=== PATIENT | male | born 1945 | race African-American/Black ===

== ENCOUNTER 2020-04-14 12:28 | Inpatient (IN) | payer MEDICARE ==
[2020-04-14 13:12] LABS: #Basophils 0.1 thou/uL (0.0-0.2); #Eosinphils 0.1 thou/uL (0.0-0.7); #Lymphocytes 1.7 thou/uL (1.20-3.40); #Monocytes 0.8 thou/uL (0.11-0.59); #Neutrophils 4.7 thou/uL (1.40-6.50); %Basophils 1.2 % (0.0-1.0); %Eosinophils 1.5 % (0.0-10.0); %Lymphocytes 22.9 % (21.0-51.0); %Monocytes 10.8 % (0.0-10.0); %Neutrophils 63.7 % (42.0-75.0); Hemoglobin 11.8 g/dL (14.0-18.0); Mean Corpuscular HGB CONC 34.1 g/dL (32.0-36.0); Mean Corpuscular Volume 99.8 fL (78.0-98.0); Platelet Count 236 thou/uL (130-400); RBC Distribution Width 13.8 % (11.5-14.5); Red Blood Cell (RBC) Count 3.46 mill/uL (4.70-6.10); White Blood Cell (WBC) Count 7.4 thou/uL (4.8-10.8)
[2020-04-14 13:25] LABS: ALT (SGPT) 35 U/L (8-55); AST (SGOT) 29 U/L (5-34); Albumin 4.1 g/dL (3.4-4.8); Alkaline Phosphatase 60 U/L (40-110); Anion Gap 27 mmol/L (10-20); BUN (Urea Nitrogen) 41 mg/dL (8.4-25.7); Bilirubin, Total 0.6 mg/dL (0.2-1.2); Calc. Creatinine Clearance 0 mL/min (70-130); Calcium 9.7 mg/dL (7.8-10.44); Carbon Dioxide 21 mmol/L (23-31); Chloride 96 mmol/L (98-107); Estimated GFR-MDRD 6; Globulin 2.9 g/dL (2.4-3.5); Glucose 73 mg/dL (83-110); Lipase 5 U/L (8-78); Potassium 3.7 mmol/L (3.5-5.1); Sodium 140 mmol/L (136-145)
[2020-04-14] MEDS ORDERED: Morphine 4 MG/ML VIAL ONE (14:18)
[2020-04-14] MEDS ORDERED: cloNIDine 0.1 MG TAB ONE (14:46)
[2020-04-14 14:53] LABS: Bacteria/HPF 3+ HPF (None Seen); Bilirubin Negative (Negative); Blood, Urine 3+ (Negative); Calcium Oxalate Crystals 4+ HPF (None Seen); Clarity Extra Turbid (Clear); Glucose, Urine (Dipstick) Normal (Negative); Ketone, Urine Trace mg/dL (Negative); Leukocyte 500 Leu/uL (Negative); Nitrite Negative (Negative); Protein, Urine (Dipstick) 300 mg/dL (Neg-Trace); RBC/HPF Greater than 50 HPF (0-3); Specific Gravity, Urine 1.015 (1.002-1.036); Squamous Epithelial 0-3 HPF (0-3); Urobilinogen Normal mg/dL (Less than 2); WBC/HPF Greater than 50 HPF (0-3); pH, Urine 7.5 (5.0-9.0)
--- NOTE | 2020-04-14 15:03 | CT ---
CT ABDOMEN AND PELVIS WITHOUT CONTRAST: 04/14/20 PROVIDED CLINICAL HISTORY: Abdominal pain. FINDINGS: Comparison is made with the examination dated 05/24/15. The visualized lung bases are free of significant opacity. Vascular calcifications including coronary calcium is demonstrated. There is an exophytic slightly hyperdense mass arising from the inferior aspect of the right kidney m easuring at least 2 cm, which could reflect a solid mass or hyperdense cyst, incompletely characteriz ed in the absence of IV contrast material. There is mild left hydronephrosis and left hydroureter with stranding about the mid to distal aspects of the left ureter. There is no ureteral or bladder calculus evident. The right renal collecting sys tem and ureter appear decompressed. There is a subcentimeter right renal artery aneurysm redemonstra maria a. Calcifications are seen involving each kidney which may be vascular or may reflect small renal c alculi. The kidneys appears diminutive. The solid abdominal organs are suboptimally evaluated in the absence of IV contrast material but demo nstrate an otherwise unremarkable unenhanced CT appearance. There is no bowel dilatation, additional inflammatory fat stranding, free fluid, or free air apparent . The appendix appears normal. The gallbladder is surgically absence. Atherosclerotic vascular calcifications are demonstrated. There is a small fat containing paraumbilic al hernia. The osseous structures demonstrate no concerning lytic or blastic lesions. IMPRESSION: 1. Mild left hydronephrosis and left hydroureter, without evidence for ureteral or bladder calcu alexandra. This may reflect a recently passed stone. 2. 2 cm right renal mass, hyperdense cyst versus solid mass. Follow-up nonemergent renal ultraso und is recommended. POS: COREY
[2020-04-14] MEDS ORDERED: HYDROmorphone 0.5 MG/0.5 ML SYRINGE ONE (15:10)
[2020-04-14] MEDS ORDERED: Acetaminophen 325 MG TAB ONE (15:17)
[2020-04-14] MEDS ORDERED: Acetaminophen 325 MG TAB PO PRN (15:33)
[2020-04-14] MEDS ORDERED: HYDROcodone/Acetaminophen 10/325 mg Tablet PO PRN (15:33)
[2020-04-14] MEDS ORDERED: Baclofen 10 MG TAB PO PRN (15:39)
--- NOTE | 2020-04-14 15:59 | PDOC.HHP ---
Hospitalist HPI - History of Present Illness Right LLQ tenderness History of Present Illness: 74 YO M with a PMH of ESRD on HD, HTN, DM who was presented to the ER with worsening RLQ pain. Pt stated he was admitted a week ago, at [facility] for 3 days for abd pain. He says he was not sure of his diagnosis and was dc home. Review of [facility] med[facility] records and CT scan however show pt was treated for Pyel onephritis, R kidney stone and possible Right kidney mass. Pt stated he still did not feel better upon getting home and his abd pain got worse. He has daily BM, including this morning, denies fever, chills, N, V . He gets HD on TTS and was at HD today when he was sent to the ER due to severe abd pain. CT scan results are still pending. Pt has been admitted for further evaluation. Hospitalist ROS - Review of Systems Constitutional: denies: fever, chills, sweats, weakness, malaise, other Eyes: denies: pain, vision change, conjunctivae inflammation, eyelid inflammation, redness, other ENT: denies: ear pain, ear discharge, nose pain, nose discharge, nose congestion, mouth pain, mouth swelling, throat pain, throat swelling, other Respiratory: denies: cough, dry, shortness of breath, hemoptysis, SOB with excertion, pleuritic pain, sputum, wheezing, other Gastrointestinal: reports: abdominal pain Genitourinary: denies: dysuria, frequency, incontinence, hematuria, retention, other Musculoskeletal: denies: neck pain, shoulder pain, arm pain, back pain, hand pain, leg pain, foot pain, other Skin: denies: rash, lesions, christine, bruising, other Neurological: denies: weakness, numbness, incoordination, change in speech, confusion, seizures, other Hospitalist History - Past Medical History Cardiac: reports: CHF, HTN, Hyperlipidemia Renal/: reports: Chronic renal failure Endocrine: reports: Diabetes - Past Surgical History Past Surgical History: reports: Cholecystectomy, Total Knee Replacement - Family History Family History: reports: diabetes mellitus - Social History Smoking Status: Never smoker Alcohol: reports: None Drugs: reports: none Domestic Violence: Negative Activity level: independent ambulation - Exam General Appearance: NAD, awake alert General - other findings: In acute pain Eye: PERRL, anicteric sclera ENT: normocephalic atraumatic, no oropharyngeal lesions Neck: supple, symmetric, no JVD, no thyromegaly Heart: RRR, no murmur, no gallops, no rubs Respiratory: CTAB, no wheezes, no rales, no ronchi Gastrointestinal: soft, non-tender, non-distended, normal bowel sounds Gastrointestinal - other findings: RLQ tenderness Extremities: no clubbing, no edema Skin: normal turgor, no lesions, no rashes Neurological: cranial nerve grossly intact, no focal deficits Musculoskeletal: normal strength, no muscle wasting Psychiatric: normal affect, normal behavior, A&O x 3 Hospitalist Results - Labs Result Diagrams: 04/14/20 12:59 04/14/20 12:59 Lab results: WBC 7.4 thou/uL (4.8-10.8) 04/14/20 12:59 Hgb 11.8 g/dL (14.0-18.0) L 04/14/20 12:59 Hct 34.5 % (42.0-52.0) L 04/14/20 12:59 MCV 99.8 fL (78.0-98.0) H 04/14/20 12:59 Plt Count 236 thou/uL (130-400) 04/14/20 12:59 Neutrophils % 63.7 % (42.0-75.0) 04/14/20 12:59 Sodium 140 mmol/L (136-145) 04/14/20 12:59 Potassium 3.7 mmol/L (3.5-5.1) 04/14/20 12:59 Chloride 96 mmol/L (98-107) L 04/14/20 12:59 Carbon Dioxide 21 mmol/L (23-31) L 04/14/20 12:59 BUN 41 mg/dL (8.4-25.7) H 04/14/20 12:59 Creatinine 10.94 mg/dL (0.7-1.3) H 04/14/20 12:59 Glucose 73 mg/dL (83-110) L 04/14/20 12:59 Calcium 9.7 mg/dL (7.8-10.44) 04/14/20 12:59 Total Bilirubin 0.6 mg/dL (0.2-1.2) 04/14/20 12:59 AST 29 U/L (5-34) 04/14/20 12:59 ALT 35 U/L (8-55) 04/14/20 12:59 Alkaline Phosphatase 60 U/L (40-110) 04/14/20 12:59 Serum Total Protein 7.0 g/dL (5.8-8.1) 04/14/20 12:59 Albumin 4.1 g/dL (3.4-4.8) 04/14/20 12:59 Lipase 5 U/L (8-78) L 04/14/20 12:59 Urine Ketones Trace mg/dL (Negative) A 04/14/20 14:21 Urine Blood 3+ (Negative) A 04/14/20 14:21 Urine Nitrite Negative (Negative) 04/14/20 14:21 Ur Leukocyte Esterase 500 Jared/uL (Negative) A 04/14/20 14:21 Urine RBC Greater than 50 HPF (0-3) A 04/14/20 14:21 Urine WBC Greater than 50 HPF (0-3) A 04/14/20 14:21 Ur Squamous Epith Cells 0-3 HPF (0-3) 04/14/20 14:21 Urine Bacteria 3+ HPF (None Seen) A 04/14/20 14:21 Hospitalist H&P A/P - Problem (1) Abdominal pain Code(s): R10.9 - UNSPECIFIED ABDOMINAL PAIN Status: Acute Qualifiers: Abdominal location: right lower quadrant Qualified Code(s): R10.31 - Right lower quadrant pain Assessment and Plan: Etiology unclear. CT scan is pending results. Prev CT 1 week ago showed pyelonephritis and right renal mass. Will f/u CT results, control pain. 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 Will hold home meds. Cover w SSI. (3) Dyslipidemia Code(s): E78.5 - HYPERLIPIDEMIA, UNSPECIFIED Status: Chronic Assessment and Plan: Cont statins (4) ESRD (end stage renal disease) Code(s): N18.6 - END STAGE RENAL DISEASE Status: Chronic Assessment and Plan: ERSD on HD on TTS. Pt had HD today. 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 (5) HTN (hypertension) Code(s): I10 - ESSENTIAL (PRIMARY) HYPERTENSION Status: Chronic Qualifiers: Hypertension type: essential hypertension Qualified Code(s): I10 - Essential (primary) hypertension Assessment and Plan: Uncontrolled due to pin. Cont BP meds, cover w IV Labetalol. (6) UTI (urinary tract infection) Status: Acute Qualifiers: Urinary tract infection type: acute pyelonephritis Qualified Code(s): N10 - Acute pyelonephritis Assessment and Plan: Cont with current abx, f/u with cx results. (7) Kidney mass Code(s): N28.89 - OTHER SPECIFIED DISORDERS OF KIDNEY AND URETER Status: Acute Assessment and Plan: Pt's last Ct showed a possible kidney mass. CT scan toady is pending. Have consulted Urology, will f/u with their recs. - Plan Plan: PPx: Heparin. CODE: FULL. Dispo: Admit as Observation.
[2020-04-14] MEDS ORDERED: Labetalol HCl 100 MG/20 ML VIAL SLOW IVP PRN (16:03)
[2020-04-14] MEDS ORDERED: Dextrose 5% in Water 1,000 ML IV PRN (16:13)
[2020-04-14] MEDS ORDERED: HumaLOG 300 UNITS/3 ML VIAL SC PRN (16:13)
[2020-04-14] MEDS: Sevelamer Carbonate 800 MG TAB PO SCH (17:17)
[2020-04-14] MEDS: cefTRIAXone\\ROCEPHIN 1 GM in Sodium Chloride 0.9% 100 ML IVPB SCH (17:47)
[2020-04-14] MEDS: hydrALAZINE 25 MG TAB PO SCH (20:32)
[2020-04-14] MEDS: Losartan 25 MG TAB PO SCH (20:33)
[2020-04-14] MEDS ORDERED: Non-Formulary Item 1 EACH (Insulin Glargine,Hum.Rec.Anlog [Lantus Solostar] 100 UNIT/ML P SC SCH (21:00)
[2020-04-14] MEDS: Dextrose 50% Abboject 50 ML SYRINGE SLOW IVP PRN (23:25)
[2020-04-15] MEDS: Dextrose 50% Abboject 50 ML SYRINGE SLOW IVP PRN (06:35)
[2020-04-15 06:43] LABS: #Basophils 0.1 thou/uL (0.0-0.2); #Eosinphils 0.2 thou/uL (0.0-0.7); #Lymphocytes 1.5 thou/uL (1.20-3.40); #Monocytes 0.6 thou/uL (0.11-0.59); #Neutrophils 3.8 thou/uL (1.40-6.50); %Basophils 0.9 % (0.0-1.0); %Eosinophils 3.4 % (0.0-10.0); %Lymphocytes 24.6 % (21.0-51.0); %Neutrophils 62.1 % (42.0-75.0); Hemoglobin 9.9 g/dL (14.0-18.0); Mean Corpuscular HGB CONC 32.9 g/dL (32.0-36.0); Mean Corpuscular Hemoglobin 33.2 pg (27.0-31.0); Mean Platelet Volume 7.8 fL (7.4-10.4); Platelet Count 204 thou/uL (130-400); RBC Distribution Width 13.9 % (11.5-14.5); Red Blood Cell (RBC) Count 2.98 mill/uL (4.70-6.10); White Blood Cell (WBC) Count 6.2 thou/uL (4.8-10.8)
[2020-04-15 07:10] LABS: Anion Gap 22 mmol/L (10-20); BUN (Urea Nitrogen) 46 mg/dL (8.4-25.7); Calc. Creatinine Clearance 6 mL/min (70-130); Carbon Dioxide 26 mmol/L (23-31); Chloride 96 mmol/L (98-107); Estimated GFR-MDRD 5; Glucose 70 mg/dL (83-110); Potassium 4.2 mmol/L (3.5-5.1); Sodium 140 mmol/L (136-145)
[2020-04-15 07:58] VITALS: BMI 30.7
[2020-04-15] MEDS: Senokot S 8.6-50 MG TAB PO SCH ×2 (09:00→10:03)
[2020-04-15] MEDS: Amlodipine 10 MG TAB PO SCH ×2 (09:00→10:01)
[2020-04-15] MEDS: Sevelamer Carbonate 800 MG TAB PO SCH ×3 (09:07→17:58)
[2020-04-15] MEDS: Ferrous Sulfate 325 MG TAB PO SCH (09:07)
[2020-04-15] MEDS ORDERED: Lidocaine-Prilocaine 2.5% Cream 5 GM TUBE TOP SCH (09:15)
[2020-04-15] MEDS: Docusate 100 MG CAP PO SCH ×2 (09:28→10:03)
[2020-04-15] MEDS: hydrALAZINE 25 MG TAB PO SCH ×4 (09:29→21:43)
[2020-04-15] MEDS ORDERED: Dextrose 5% in Water 1,000 ML IV SCH (10:00)
[2020-04-15] MEDS ORDERED: EPOETIN ALFA-EPBX (ESRD) 10,000 UNIT/ML VIAL SC SCH (10:00)
[2020-04-15] MEDS: Calcitriol 0.25 MCG CAP PO SCH (10:02)
[2020-04-15] MEDS: Aspirin 81 mg Enteric Coated Tablet PO SCH (10:02)
--- NOTE | 2020-04-15 10:03 | CON ---
DATE OF CONSULTATION: 04/15/2020 HISTORY OF PRESENT ILLNESS: Mr. Tomlin is a 74-year-old black male with known history of ESRD - on maintenance hemodialysis. During dialysis, the patient complained of diffuse abdominal pain. Abdominal pain was located towards the lower part of the abdomen. He was admitted for further management. He is currently being empirically treated with IV antibiotics. We are being consulted for management of his ESRD. Please note, this patient was recently admitted at [facility] for the same problem. Workup was essentially negative. He had a CAT scan at that time, which showed that the chronic renal mass has grown by a few centimeters. He is being followed up by his urologist regarding this. Abdominal pain this morning slightly improved. REVIEW OF SYSTEMS: Positive for abdominal pain, intermittent in nature. No nausea. No vomiting. Denies any fever or chills. No syncopal episode. No productive cough. No diarrhea. No gross hematuria. No dysuria. No hematochezia. No melena. No nausea. No vomiting. Appetite and energy level are fair. Occasional joint pains. No chest pain or shortness of breath. No headache. No syncopal episode. MEDICATIONS: 1. Amlodipine 10 mg daily. 2. Aspirin 81 mg daily. 3. Baclofen 10 mg p.o. b.i.d. 4. Calcitriol 0.25 mcg tablet daily. 5. Ceftriaxone 1 g IV q.24 hours. 6. Diltiazem 240 mg once a day. 7. Colace 100 mg q.a.m. 8. Ferrous sulfate 325 mg q.a.m. 9. Humalog sliding scale. 10. Hydrocodone one tab q.4 p.r.n. 11. Losartan one tab daily. 12. Minoxidil 10 mg at bedtime. 13. Protonix 40 mg tab daily. 14. Effexor XR one tab daily. PAST MEDICAL HISTORY: 1. History of right renal mass - followed by his urologist, Dr. Albright. 2. 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 3. Type 2 diabetes mellitus, long-standing. 4. Hypertension. 5. History of depression. 6. Restless legs syndrome. 7. Chronic low back pain. PAST SURGICAL HISTORY: Status post right knee replacement, status post cholecystectomy, status post colonoscopy, status post cuffed hemodialysis catheter placement. SOCIAL HISTORY: The patient is . Lives alone, but his grandson sometimes comes to visit him. 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 No known drug abuse. Currently, no smoking, no alcohol intake. Sedentary lifestyle. Education, high school. FAMILY HISTORY: No family history of ESRD. ALLERGIES: NONE. TRAUMA: None. IMMUNIZATIONS: Up-to-date. HOSPITALIZATIONS: Please see past medical history. PHYSICAL EXAMINATION: VITAL SIGNS: Blood pressure is 158/57, heart rate 91, respiratory rate 16, temperature 98.1, and O2 saturation 97%. GENERAL: The patient is awake, alert, comfortable, not in overt distress. SKIN: Adequate turgor. HEENT: He has slightly pale conjunctivae. Anicteric sclerae. NECK: No neck mass. No carotid bruits. No JVD. CHEST: No deformities. LUNGS: Clear breath sounds. No wheezing. No crackles. HEART: Normal sinus rhythm. No murmur. No gallops. No rubs. ABDOMEN: Globular, soft, and nontender. No masses. Positive for bowel sounds. EXTREMITIES: No edema. No deformities. LABORATORY DATA: Laboratories of April 15, 2020; white count 6.2, hemoglobin 9.9. Sodium 140, potassium 4.2, chloride 96, carbon dioxide 26, BUN 46, creatinine 12.51, calcium 9.0, and glucose 70. IMAGING DATA: CT scan of the abdomen and pelvis on April 14, 2020, no contrast given. Mild left hydronephrosis with left hydroureter without evidence of ureteral or bladder calculus. Finding of a 2-cm right renal mass. ASSESSMENT AND PLAN: 1. Chronic abdominal pain, intermittent in nature. GI consult will be done. The other possibility is that this might reflect renal colic. It did mention left hydronephrosis, but no stone was noted. 2. End-stage renal disease, stable. The patient essentially missed his dialysis yesterday, where the treatment was only for less than half an hour. We will do a dialysis session with this patient for at least 3 hours. Fluid removal as tolerated. 3. Anemia. Start Epogen 7500 units subcu every week. 4. Right renal mass - this is being observed by his urologist. Recheck CBC and basic metabolic panel in a.m. Job ID: [id number]
[2020-04-15] MEDS: Venlafaxine XR 37.5 MG CAP PO SCH ×2 (10:04→10:18)
[2020-04-15] MEDS: Minoxidil 10 MG TAB PO SCH (10:14)
[2020-04-15] MEDS ORDERED: EPOETIN ALFA-EPBX (ESRD) 4,000 UNIT/ML VIAL SC SCH (12:00)
--- NOTE | 2020-04-15 12:35 | PDOC.HOSPP ---
- Subjective Encounter Date: 04/15/20 Subjective: Pain has improved. Pt feels better. - Objective Vital Signs & Weight: Vital Signs (12 hours) Temp Pulse Resp BP BP Pulse Ox 04/15/20 11:38 98.1 F 74 16 170/62 H 92 L 04/15/20 10:16 91 158/57 H 04/15/20 10:03 91 158/57 H 04/15/20 10:01 91 158/57 H 04/15/20 08:00 98.1 F 91 16 158/57 H 97 04/15/20 04:25 98.8 F 75 12 121/55 L 94 L Weight Weight 190 lb 7 oz Result Diagrams: 04/15/20 06:22 04/15/20 06:22 Additional Labs: Accuchecks 04/15/20 04/15/20 04/15/20 11:36 06:22 04:20 POC Glucose 97 69 L 73 04/15/20 04/15/20 04/14/20 02:34 00:37 22:41 POC Glucose 88 152 H 69 L 04/14/20 16:32 POC Glucose 77 Hospitalist ROS - Review of Systems Constitutional: denies: fever, chills, sweats, weakness, malaise, other Eyes: denies: pain, vision change, conjunctivae inflammation, eyelid inflammation, redness, other Respiratory: denies: cough, dry, shortness of breath, hemoptysis, SOB with excertion, pleuritic pain, sputum, wheezing, other Cardiovascular: denies: chest pain, palpitations, orthopnea, paroxysmal noc. dyspnea, edema, light headedness, other Gastrointestinal: reports: abdominal pain. denies: nausea, vomiting, diarrhea, constipation, melena, hematochezia, other Genitourinary: denies: dysuria, frequency, incontinence, hematuria, retention, other Musculoskeletal: denies: neck pain, shoulder pain, arm pain, back pain, hand pain, leg pain, foot pain, other Skin: denies: rash, lesions, christine, bruising, other Neurological: denies: weakness, numbness, incoordination, change in speech, confusion, seizures, other - Medication Medications: Active Medications Generic Name Dose Route Start Last Admin Trade Name Freq PRN Reason Stop Dose Admin Amlodipine Besylate 10 mg 04/15/20 09:00 04/15/20 10:01 Amlodipine 10 Mg Tab PO 10 mg DAILY ENEIDA Administration Aspirin 81 mg 04/15/20 09:00 04/15/20 10:02 Aspirin 81 Mg Enteric Coated Tablet PO 81 mg DAILY ENEIDA Administration Calcitriol 0.25 mcg 04/15/20 09:00 04/15/20 10:02 Calcitriol 0.25 Mcg Cap PO 0.25 mcg DAILY ENEIDA Administration Dextrose/Water 25 gm 04/14/20 16:13 04/15/20 06:35 Dextrose 50% Abboject 50 Ml Syringe SLOW IVP 25 gm PRN PRN Administration Hypoglycemia Diltiazem HCl 240 mg 04/15/20 09:00 04/15/20 10:16 Diltiazem Hcl Cd 240 Mg Capsule PO Not Given DAILY ENEIDA Docusate Sodium 100 mg 04/15/20 09:00 04/15/20 10:03 Docusate 100 Mg Cap PO 100 mg QAM ENEIDA Administration Ferrous Sulfate 325 mg 04/15/20 07:30 04/15/20 09:07 Ferrous Sulfate 325 Mg Tab PO Not Given DAILY-AC ENEIDA Hydralazine HCl 100 mg 04/14/20 21:00 04/15/20 10:03 Hydralazine 25 Mg Tab PO 100 mg TID ENEIDA Administration Ceftriaxone Sodium 1 gm/ 100 mls @ 200 mls/hr 04/14/20 17:00 04/14/20 17:47 Sodium Chloride IVPB 100 mls Q24HR ENEIDA Administration Dextrose/Water 1,000 mls @ 75 mls/hr 04/15/20 10:00 04/15/20 10:09 D5w IV 1,000 mls INF ENEIDA Administration Losartan Potassium 100 mg 04/14/20 21:00 04/14/20 20:33 Losartan 25 Mg Tab PO 100 mg HS ENEIDA Administration Minoxidil 10 mg 04/15/20 09:00 04/15/20 10:14 Minoxidil 10 Mg Tab PO Not Given DAILY ENEIDA Pantoprazole Sodium 40 mg 04/15/20 09:00 04/15/20 10:04 Pantoprazole 40 Mg Tab PO 40 mg DAILY ENEIDA Administration Senna/Docusate Sodium 1 tab 04/15/20 09:00 04/15/20 10:03 Senokot S 8.6-50 Mg Tab PO 1 tab DAILY ENEIDA Administration Sevelamer Carbonate 800 mg 04/14/20 17:00 04/15/20 09:07 Sevelamer Carbonate 800 Mg Tab PO Not Given TID-WM ENEIDA Venlafaxine HCl 37.5 mg 04/15/20 09:00 04/15/20 10:18 Venlafaxine Xr 37.5 Mg Cap PO Not Given DAILY ENEIDA - Exam General Appearance: NAD, awake alert Eye: PERRL, anicteric sclera ENT: normocephalic atraumatic, no oropharyngeal lesions Neck: supple, symmetric, no JVD, no thyromegaly Heart: RRR, no murmur, no gallops, no rubs Respiratory: CTAB, no wheezes, no rales, no ronchi Gastrointestinal: soft, non-distended Gastrointestinal - other findings: RLQ tenderness Extremities: no clubbing, no edema Skin: normal turgor, no lesions Neurological: cranial nerve grossly intact, no focal deficits Musculoskeletal: normal strength, no muscle wasting Psychiatric: normal affect, normal behavior, A&O x 3 Hosp A/P (1) Abdominal pain Code(s): R10.9 - UNSPECIFIED ABDOMINAL PAIN Status: Acute Qualifiers: Abdominal location: right lower quadrant Qualified Code(s): R10.31 - Right lower quadrant pain Plan: Unclear etiology. CT scan shows R kidney mass. Yet to be seen by Urology. GI has been consulted, will f/u with their recs. For now control pain. 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 [place]lesia d/w GI if pt can eat. For give IVF RL. Hold DM meds. (3) Dyslipidemia Code(s): E78.5 - HYPERLIPIDEMIA, UNSPECIFIED Status: Chronic Plan: Stable, cont statins. (4) ESRD (end stage renal disease) Code(s): N18.6 - END STAGE RENAL DISEASE Status: Chronic Plan: Seen by Renal, will get HD today as HD yday was cut short. Will further cont HD per TTS schedule. Will defer HD need to Renal. (5) HTN (hypertension) Code(s): I10 - ESSENTIAL (PRIMARY) HYPERTENSION Status: Chronic Qualifiers: Hypertension type: essential hypertension Qualified Code(s): I10 - Essential (primary) hypertension Plan: Uncontrolled, will adjust BP meds as needed. Cover w IV Labetalol. (6) UTI (urinary tract infection) Status: Acute Qualifiers: Urinary tract infection type: acute pyelonephritis Qualified Code(s): N10 - Acute pyelonephritis Plan: Cont current abx . F/u w cx results. (7) Kidney mass Code(s): N28.89 - OTHER SPECIFIED DISORDERS OF KIDNEY AND URETER Status: Acute Plan: Seen on CT. Urology has been consulted, will f/u with their recs. - Plan continue antibiotics PPx: Heparin. CODE: FULL. Dispo: Cont current mgt. Await GI and Urology recs.
[2020-04-15] MEDS ORDERED: Sevelamer Carbonate 800 MG TAB PO PRN (12:49)
--- NOTE | 2020-04-15 13:35 | CON ---
DATE OF CONSULTATION: 04/15/2020 REQUESTING PHYSICIAN: Dr. Quiles. REASON FOR CONSULTATION: Abdominal pain. HISTORY OF PRESENT ILLNESS: Prince Tomlin is a 74-year-old man with a history of end-stage renal disease, on hemodialysis, as well as congestive heart failure and diabetes. He has undergone cholecystectomy in the past. He says he has undergone multiple colonoscopies in the past and his last colonoscopy was actually within the past year elsewhere with no findings other than a few benign polyps removed. He does not recall having undergone upper endoscopy in the past, but has no known history of peptic ulcer disease. He reports that for about the past couple of years, off and on, he has had episodes of severe lower abdominal pain. These are frequently greater in the right lower quadrant than the left lower quadrant, sometimes associated with nausea, though no vomiting, and sometimes associated with fevers and chills. He was hospitalized just over a week ago at [facility] with the same symptoms, had some workup including CT imaging there, was diagnosed with pyelonephritis based on left-sided hydronephrosis and inflammatory stranding on imaging and also noted to have a right-sided renal mass. This is being followed by urologist, Dr. Albright. The patient cannot really recall what treatment he received, but he reports on hospital discharge, his abdominal pain never really got better. It became quite severe again yesterday prompting his admission. Again, he describes this as being in the right lower quadrant, but also involving the left lower quadrant. He cannot relate to oral intake or to bowel movements. His bowel movements are regular and his last bowel movement was yesterday and it appeared normal. There is no melena or hematochezia. Upon arrival here, his urinalysis shows greater than 50 RBCs and WBCs. Urine cultures not showing any growth to date. He is being treated with IV ceftriaxone. Urology consultation is pending, COVID is pending, and a CT of the abdomen and pelvis here again demonstrates a 2 cm right renal mass as well as mild left-sided hydronephrosis and hydroureter with some inflammatory stranding, though no evidence of stone. The bowel appears normal and solid organs are suboptimally evaluated with noncontrast scan. REVIEW OF SYSTEMS: Full review of systems including constitutional, head, eyes, ears, nose, throat, GI, , cardiovascular, respiratory, musculoskeletal, neurologic systems is negative except as noted in the HPI. PAST MEDICAL HISTORY: End-stage renal disease, on hemodialysis, hypertension, diabetes, CHF, hyperlipidemia, cholecystectomy, knee replacement, depression, restless legs syndrome, kidney stones, right renal mass. ALLERGIES: NO KNOWN DRUG ALLERGIES. MEDICATIONS: 1. Aspirin 81 mg daily. 2. Calcitriol. 3. Ceftriaxone 1 g q.24 hours IV. 4. Diltiazem 240 mg daily. 5. Docusate 100 mg daily. 6. Ferrous sulfate 325 mg daily. 7. Hydralazine 100 mg t.i.d. 8. Losartan 100 mg p.o. at bedtime. 9. Minoxidil 10 mg daily. 10. Pantoprazole 40 mg daily. 11. Senna/docusate one tab daily. 12. Effexor 37.5 mg daily. FAMILY HISTORY: Noncontributory. SOCIAL HISTORY: No smoking, alcohol, or drug use. PHYSICAL EXAMINATION: VITAL SIGNS: Temperature 98.1, pulse 74, blood pressure 170/62, 92% oxygen saturation on room air. GENERAL: A 74-year-old man, lying in bed comfortably, in no acute distress. SKIN: No jaundice, no rashes were palpable. HEENT: Eyes: No scleral icterus. Extraocular movements intact. ENT: Mucous membranes moist. No oral lesions. LYMPH: No submandibular or supraclavicular lymphadenopathy. THYROID: Nontender to palpation. HEART: Regular rate and rhythm. LUNGS: Clear to auscultation bilaterally. ABDOMEN: Overweight, nondistended. Bowel sounds are present, soft. Tender to palpation in the right lower quadrant as well as left lower quadrant. Nontender in the upper abdomen. No guarding, rebound tenderness. EXTREMITIES: No peripheral edema. VESSELS: Radial pulses 2+ bilaterally. NEUROLOGIC: Cranial nerves 2 through 12 intact bilaterally. No focal deficits. LABORATORY STUDIES: WBC 6.2, hemoglobin 9.9, MCV 101, platelets 204. Sodium 140, potassium 4.2, BUN 46, creatinine 12.51, glucose 97, calcium 9.0. Total bilirubin 0.6, alkaline phosphatase 60, AST 29, ALT 35. Albumin 4.1. Lipase 5. COVID pending. Urinalysis shows greater than 50 RBCs and greater than 50 WBCs, positive leukocyte esterase, 3+ bacteria. Urine culture is showing no growth at 24 hours. ASSESSMENT AND PLAN: 1. Right lower quadrant greater than left lower quadrant abdominal pain, acute on chronic. 2. Left-sided hydronephrosis with inflammatory stranding. 3. Urinary tract infection. 4. Right renal mass. I think the patient's recurrent abdominal pain symptoms are more likely to be related to recurrent issues with urinary tract infections and renal stones, than to any primary GI etiology. He reports having undergone a colonoscopy within the past year elsewhere and his symptoms are not really related to changes in bowel habits or to oral intake. Urology consultation is pending, so we will follow up their impression and recommendations. I suppose that if his symptoms are not thought to be related to urologic cause, then we could always consider diagnostic EGD and colonoscopy while he is here. I will follow up with the patient tomorrow morning for further discussion. In the meantime, I think he could have a full liquid diet today, we will have him on clear liquids tomorrow morning in case we decide he will need a bowel preparation and procedure. Thank you for the consultation. Please call anytime with questions or concerns. Job ID: [id number]
[2020-04-15] MEDS: Dicyclomine 10 MG CAP PO SCH ×2 (15:18→21:44)
--- NOTE | 2020-04-15 15:41 | CON ---
DATE OF CONSULTATION: REQUESTING PHYSICIAN: Eitan Sloan MD. REASON FOR CONSULTATION: Right renal cyst versus mass and possible left pyelonephritis. HISTORY OF PRESENT ILLNESS: Mr. Tomlin is a 74-year-old male with history of end-stage renal disease, on hemodialysis, hypertension, and diabetes mellitus who recently was admitted to [facility] for 3 days for abdominal pain. He was treated for pyelonephritis. CT at that time demonstrated some mild left hydroureter and some periureteral stranding and inflammatory changes consistent with infection. The patient has established with Dr. Albright. Incidentally, it was noted he had a 2 cm right renal cyst versus mass. He requested transfer to [place] for continuity of care. After being seen back in the emergency room yesterday at [facility], the patient was admitted and started on IV antibiotics. Currently, he is feeling better. His pain is well controlled. No nausea, vomiting, fever, or chills. He has no other complaints. REVIEW OF SYSTEMS: Full 12-point review of systems was performed and is negative other than that mentioned in HPI. PAST MEDICAL HISTORY: CHF, hypertension, hyperlipidemia, chronic renal failure with end-stage renal disease, on hemodialysis, diabetes. PAST SURGICAL HISTORY: Cholecystectomy, total knee replacement. FAMILY HISTORY: Noncontributory. SOCIAL HISTORY: No alcohol, tobacco, or illicit drugs. He lives in [place]. His primary care physician is . PHYSICAL EXAMINATION: VITAL SIGNS: Temperature 98.1, pulse 74, respirations 16, oxygen saturation 92% on room air, blood pressure 170/62. GENERAL: He is alert and oriented x3. No apparent distress. HEENT: Normocephalic, atraumatic. NECK: Supple. No masses or lymphadenopathy. CARDIOVASCULAR: Regular rhythm. PULMONARY: Breathing unlabored. ABDOMEN: Soft, nontender/nondistended. No masses or organomegaly. No suprapubic tenderness to palpation. No CVA tenderness. EXTREMITIES: Warm, well perfused. No edema. NEUROLOGIC: No focal deficits. LABORATORY DATA: White blood cell count 6.2, hemoglobin 9.9, hematocrit 30.0, platelets 204. Sodium 140, potassium 4.2, chloride 96, bicarb 26, BUN 46, creatinine 12.51. Urine shows 3+ blood, 3+ bacteria, greater than 50 red blood cells per high-power field, greater than 50 white blood cells per high-power field. RADIOLOGY DATA: CT of the abdomen and pelvis demonstrates mild left hydronephrosis and left hydroureter without any ureteral or bladder calculus. There is also a 2 cm right renal mass, a hyperdense cyst versus solid mass. ASSESSMENT: A 74-year-old male with urinary tract infection, possible left pyelonephritis and incidental right renal mass versus hyperdense cyst. PLAN: The patient's abdominal pain is improving. Continue IV antibiotics. Follow up on cultures. Regarding his right renal mass versus hyperdense cyst, this can be further worked up as an outpatient or possibly during this inpatient hospitalization by his primary urologist, Dr. Albright. There is no indication for urgent intervention at this time. This is an incidental finding and is not the source of his pain. Job ID: [id number]
[2020-04-15] MEDS: cefTRIAXone\\ROCEPHIN 1 GM in Sodium Chloride 0.9% 100 ML IVPB SCH ×2 (21:30→21:45)
[2020-04-15] MEDS: NIFEdipine XL 30 MG TAB PO SCH (21:40)
[2020-04-15] MEDS: Losartan 25 MG TAB PO SCH (21:44)
[2020-04-16 06:20] LABS: #Eosinphils 0.2 thou/uL (0.0-0.7); #Lymphocytes 1.3 thou/uL (1.20-3.40); #Monocytes 0.5 thou/uL (0.11-0.59); #Neutrophils 3.3 thou/uL (1.40-6.50); %Basophils 0.7 % (0.0-1.0); %Lymphocytes 24.3 % (21.0-51.0); %Monocytes 9.8 % (0.0-10.0); %Neutrophils 61.2 % (42.0-75.0); Hemoglobin 10.5 g/dL (14.0-18.0); Mean Corpuscular HGB CONC 33.1 g/dL (32.0-36.0); Mean Corpuscular Hemoglobin 33.3 pg (27.0-31.0); Mean Platelet Volume 7.8 fL (7.4-10.4); Platelet Count 225 thou/uL (130-400); Red Blood Cell (RBC) Count 3.15 mill/uL (4.70-6.10); White Blood Cell (WBC) Count 5.4 thou/uL (4.8-10.8)
[2020-04-16 06:44] LABS: Anion Gap 16 mmol/L (10-20); BUN (Urea Nitrogen) 28 mg/dL (8.4-25.7); Calc. Creatinine Clearance 9 mL/min (70-130); Calcium 8.8 mg/dL (7.8-10.44); Carbon Dioxide 29 mmol/L (23-31); Chloride 98 mmol/L (98-107); Estimated GFR-MDRD 7; Glucose 86 mg/dL (83-110); Potassium 4.1 mmol/L (3.5-5.1); Sodium 139 mmol/L (136-145)
[2020-04-16] MEDS: Venlafaxine XR 37.5 MG CAP PO SCH (08:34)
[2020-04-16] MEDS: Docusate 100 MG CAP PO SCH (08:34)
[2020-04-16] MEDS: Aspirin 81 mg Enteric Coated Tablet PO SCH (08:34)
[2020-04-16] MEDS: Sevelamer Carbonate 800 MG TAB PO SCH ×3 (08:34→18:13)
[2020-04-16] MEDS: NIFEdipine XL 30 MG TAB PO SCH (08:35)
[2020-04-16] MEDS: Calcitriol 0.25 MCG CAP PO SCH (08:36)
[2020-04-16] MEDS: Dicyclomine 10 MG CAP PO SCH ×3 (08:36→20:37)
[2020-04-16] MEDS: Senokot S 8.6-50 MG TAB PO SCH (08:36)
[2020-04-16] MEDS: Ferrous Sulfate 325 MG TAB PO SCH (08:37)
[2020-04-16] MEDS: hydrALAZINE 25 MG TAB PO SCH ×3 (08:37→20:37)
[2020-04-16] MEDS: Cholecalciferol 1,000 UNITS (25 MCG) TAB PO SCH (08:38)
--- NOTE | 2020-04-16 10:22 | PRG ---
DATE OF SERVICE: 04/16/2020 SUBJECTIVE: Mr. Tomlin is feeling a bit better today. Abdominal pain has significantly improved. He remains frustrated about the recurrent nature of his symptoms. He continues on IV ceftriaxone. OBJECTIVE: VITAL SIGNS: Temperature 98.7, pulse 82, blood pressure 157/67, 93% oxygen saturation on room air. GENERAL: No acute distress. HEART: Regular rate and rhythm. LUNGS: Clear to auscultation bilaterally. ABDOMEN: Bowel sounds are present. Soft. Some mild tenderness to palpation in the lower abdomen. No guarding, rebound, or tenderness. EXTREMITIES: No peripheral edema. LABORATORY STUDIES: Hemoglobin 10.5, WBC 5.4, platelets 225. Sodium 139, potassium 4.1, BUN 28, creatinine 9.26, calcium 8.8. Preliminary urine cultures showed no growth at 24 hours, but urinalysis showing greater than 50 WBCs, greater than 50 RBCs. ASSESSMENT/PLAN: 1. Right lower quadrant greater than left lower quadrant abdominal pain, acute on chronic, significantly improved. 2. Left-sided hydronephrosis with inflammatory stranding, likely represents a recurrent pyelonephritis. 3. Recurrent urinary tract infection. 4. Right renal mass. My impression remains that his pain is not likely related to primary gastrointestinal issue, particularly as he has had colonoscopy elsewhere within the past year, which was evidently unremarkable. We are not going to plan to repeat any endoscopic investigation at this time. The patient does not desire this. I have started him on dicyclomine, which I think can be continued to see how much it helps. He will get continued treatment for his urinary issues. I will go ahead and advance his diet today. GI will sign off, but please call back anytime with questions or concerns. Job ID: [id number]
[2020-04-16] MEDS: Minoxidil 10 MG TAB PO SCH (11:02)
[2020-04-16 12:50] LABS: SARS-CoV-2 MS2 Positive; SARS-CoV-2 N Gene Negative; SARS-CoV-2 S Gene Negative; SARS-CoV-2 by NAA Not Detected (NotDetected); SARS-CoV-2 orf1ab Negative
[2020-04-16] MEDS: Ondansetron PF 4 MG/2 ML Vial IVP PRN (13:26)
--- NOTE | 2020-04-16 15:31 | PDOC.HOSPP ---
- Subjective Encounter Date: 04/16/20 Encounter Time: 10:30 Subjective: Patient seen and examined for persistent abdominal pain with recent diagnosis of acute pyelonephritis at [facility]. Abdominal pain slowly improving. Denies any nausea or vomiting. No bowel movements. - Objective Vital Signs & Weight: Vital Signs (12 hours) Temp Pulse Resp BP BP Pulse Ox 04/16/20 10:59 99.1 F 80 18 137/66 96 04/16/20 08:37 82 157/67 H 04/16/20 08:35 82 157/67 H 04/16/20 08:34 82 157/67 H 04/16/20 08:00 93 L 04/16/20 07:07 98.7 F 82 18 157/67 H 93 L 04/16/20 04:00 98.8 F 81 18 151/61 H 94 L Weight Admit Weight 190 lb 7.008 oz Weight 190 lb 7 oz I&O: 04/15/20 04/16/20 04/17/20 06:59 06:59 06:59 Intake Total 1240 Balance 1240 Result Diagrams: 04/16/20 05:43 04/16/20 05:43 Additional Labs: Accuchecks 04/16/20 04/16/20 04/15/20 10:53 05:31 21:48 POC Glucose 187 H 97 106 H 04/15/20 04/15/20 04/14/20 16:08 09:21 20:39 POC Glucose 157 H 112 H 71 Radiology Reviewed by me: Yes (CT abdomenleft-sided hydronephrosis) Hospitalist ROS - Review of Systems Cardiovascular: denies: chest pain, palpitations, orthopnea, paroxysmal noc. dyspnea, edema, light headedness, other Gastrointestinal: denies: nausea, vomiting, abdominal pain, diarrhea, constipation, melena, hematochezia, other - Medication Medications: Active Medications Generic Name Dose Route Start Last Admin Trade Name Freq PRN Reason Stop Dose Admin Aspirin 81 mg 04/15/20 09:00 04/16/20 08:34 Aspirin 81 Mg Enteric Coated Tablet PO 81 mg DAILY ENEIDA Administration Calcitriol 0.25 mcg 04/15/20 09:00 04/16/20 08:36 Calcitriol 0.25 Mcg Cap PO 0.25 mcg DAILY ENEIDA Administration Cholecalciferol 1,000 units 04/16/20 09:00 04/16/20 08:38 Cholecalciferol 1,000 Units (25 Mcg) Tab PO 1,000 units DAILY ENEIDA Administration Dextrose/Water 25 gm 04/14/20 16:13 04/15/20 06:35 Dextrose 50% Abboject 50 Ml Syringe SLOW IVP 25 gm PRN PRN Administration Hypoglycemia Dicyclomine HCl 10 mg 04/15/20 15:00 04/16/20 08:36 Dicyclomine 10 Mg Cap PO 10 mg TID ENEIDA Administration Diltiazem HCl 240 mg 04/15/20 09:00 04/16/20 08:34 Diltiazem Hcl Cd 240 Mg Capsule PO 240 mg DAILY ENEIDA Administration Epoetin Kevin-epbx 7,500 unit 04/15/20 12:00 04/15/20 13:33 Epoetin Kevin-Epbx (Esrd) 4,000 Unit/Ml Vial SC 7,500 unit Q7D ENEIDA Administration Ferrous Sulfate 325 mg 04/15/20 07:30 04/16/20 08:37 Ferrous Sulfate 325 Mg Tab PO 325 mg DAILY-AC ENEIDA Administration Hydralazine HCl 100 mg 04/14/20 21:00 04/16/20 08:37 Hydralazine 25 Mg Tab PO 100 mg TID ENEIDA Administration Dextrose/Water 1,000 mls @ 75 mls/hr 04/15/20 10:00 04/15/20 10:09 D5w IV 1,000 mls INF ENEIDA Administration Ceftriaxone Sodium 1 gm/ 100 mls @ 200 mls/hr 04/15/20 21:30 04/15/20 21:45 Sodium Chloride IVPB 100 mls Q24HR ENEIDA Administration Lidocaine/Prilocaine 2 gm 04/15/20 09:15 04/15/20 17:58 Lidocaine-Prilocaine 2.5% Cream 5 Gm Tube TOP 1 applic WILLCALL ENEIDA Administration Losartan Potassium 100 mg 04/14/20 21:00 04/15/20 21:44 Losartan 25 Mg Tab PO 100 mg HS ENEIDA Administration Minoxidil 10 mg 04/15/20 09:00 04/16/20 11:02 Minoxidil 10 Mg Tab PO 10 mg DAILY ENEIDA Administration Ondansetron HCl 4 mg 04/14/20 15:33 04/16/20 13:26 Ondansetron Pf 4 Mg/2 Ml Vial IVP 4 mg Q6H PRN Administration Nausea/Vomiting Pantoprazole Sodium 40 mg 04/15/20 09:00 04/16/20 08:36 Pantoprazole 40 Mg Tab PO 40 mg DAILY ENEIDA Administration Senna/Docusate Sodium 1 tab 04/15/20 09:00 04/16/20 08:36 Senokot S 8.6-50 Mg Tab PO 1 tab DAILY ENEIDA Administration Sevelamer Carbonate 800 mg 04/14/20 17:00 04/16/20 12:09 Sevelamer Carbonate 800 Mg Tab PO 800 mg TID-WM ENEIDA Administration Venlafaxine HCl 37.5 mg 04/15/20 09:00 04/16/20 08:34 Venlafaxine Xr 37.5 Mg Cap PO 37.5 mg DAILY ENEIDA Administration - Exam General Appearance: ill appearing Heart: RRR, no gallops Respiratory: no wheezes, no ronchi Gastrointestinal: non-tender, non-distended, normal bowel sounds Extremities: no cyanosis, no clubbing Neurological: no new deficit Hosp A/P - Plan Abdominal discomfortimproving Left-sided pyelonephritisrecently diagnosed at [facility] Right renal mass Chronic anemia probably due to nutritional deficiency End-stage renal disease on hemodialysis Hypertension Hyperlipidemia Diabetes mellitus type 2 Plan: Await urine cultures. Continue IV ceftriaxone. Continue IV fluids per nephrology. Discontinue Procardia XL. Continue Cardizem, minoxidil and other medications as above. GI and neurology input appreciated. Change to inpatient per [facility] recommendation.
[2020-04-16] MEDS: Losartan 25 MG TAB PO SCH (20:37)
[2020-04-16] MEDS: cefTRIAXone\\ROCEPHIN 1 GM in Sodium Chloride 0.9% 100 ML IVPB SCH (20:38)
[2020-04-17] MEDS: Sevelamer Carbonate 800 MG TAB PO SCH ×3 (08:20→16:48)
[2020-04-17] MEDS: hydrALAZINE 25 MG TAB PO SCH ×3 (08:20→21:05)
[2020-04-17] MEDS: Dicyclomine 10 MG CAP PO SCH ×3 (08:30→20:05)
--- NOTE | 2020-04-17 09:39 | PRG ---
DATE OF SERVICE: 04/17/2020 SUBJECTIVE: Mr. Tomlin is a 74-year-old black male with ESRD and was initially admitted for abdominal pain. The abdominal pain has slowly been improving. He does have a renal mass, which is being followed up as an outpatient. His abdominal pain has also been evaluated by GI. He is currently undergoing hemodialysis today. Our plan is fluid removal as tolerated. No other complaints today. OBJECTIVE: VITAL SIGNS: Blood pressure 91/52, heart rate 86, respiratory rate 18, temperature 98.1, O2 saturation 94%. GENERAL: The patient is noted to be awake, alert, comfortable, not in overt distress. SKIN: Adequate turgor. HEENT: Pinkish conjunctivae. Anicteric sclerae. No neck mass. No carotid bruits. No JVD. CHEST: No deformities. LUNGS: Clear breath sounds. No wheezing. No crackles. HEART: Normal sinus rhythm. No murmur. No gallops. No rubs. ABDOMEN: Globular, soft, nontender. No masses. EXTREMITIES: No edema. No deformities. MEDICATIONS: Of April 17, 2020, were reviewed. LABORATORY DATA: Of April 16, 2020; white count 5.4, hemoglobin 10.5. Potassium 4.1, BUN 28, creatinine 9.26. On April 17, 2020, glucose 105. ASSESSMENT AND PLAN: 1. Abdominal pain-actually improved. GI has evaluated this patient. Recommendation is to start dicyclomine. No indication for any repeat colonoscopy. 2. Right renal mass, followed up by his urologist as an outpatient. 3. End-stage renal disease. We will continue current hemodialysis regimen. Again, fluid removal only as tolerated by the patient. Agree with current management. Job ID: [id number]
[2020-04-17 11:31] LABS: HBSAg Index 0.15 S/CO (0-0.99); Hep B Surf Ag Non-Reactive S/CO (NonReactive)
[2020-04-17] MEDS: Calcitriol 0.25 MCG CAP PO SCH (13:56)
[2020-04-17] MEDS: Senokot S 8.6-50 MG TAB PO SCH (13:56)
[2020-04-17] MEDS: Cholecalciferol 1,000 UNITS (25 MCG) TAB PO SCH (13:56)
[2020-04-17] MEDS: Venlafaxine XR 37.5 MG CAP PO SCH (13:57)
[2020-04-17] MEDS: Ferrous Sulfate 325 MG TAB PO SCH (13:57)
[2020-04-17] MEDS: Minoxidil 10 MG TAB PO SCH (13:58)
[2020-04-17] MEDS: Aspirin 81 mg Enteric Coated Tablet PO SCH (13:58)
[2020-04-17] MEDS: Saccharomyces boulardii 250 MG CAP PO SCH (13:58)
--- NOTE | 2020-04-17 14:33 | PDOC.HOSPP ---
- Subjective Encounter Date: 04/17/20 Encounter Time: 11:15 Subjective: is getting HD, no nausea abd pain is better no sob - Objective Vital Signs & Weight: Vital Signs (12 hours) Temp Pulse Resp BP BP Pulse Ox 04/17/20 13:57 90 125/57 L 04/17/20 13:56 86 04/17/20 07:11 98.1 F 86 18 91/52 L 94 L Weight Admit Weight 190 lb 7.008 oz Weight 190 lb 7 oz I&O: 04/16/20 04/17/20 04/18/20 06:59 06:59 06:59 Intake Total 1240 Balance 1240 Result Diagrams: 04/16/20 05:43 04/16/20 05:43 Additional Labs: Accuchecks 04/17/20 04/17/20 04/16/20 14:03 05:32 19:10 POC Glucose 119 H 105 H 173 H 04/16/20 16:41 POC Glucose 93 Hospitalist ROS - Medication Medications: Active Medications Generic Name Dose Route Start Last Admin Trade Name Alen PRN Reason Stop Dose Admin Aspirin 81 mg 04/15/20 09:00 04/17/20 13:58 Aspirin 81 Mg Enteric Coated Tablet PO 81 mg DAILY ENEIDA Administration Calcitriol 0.25 mcg 04/15/20 09:00 04/17/20 13:56 Calcitriol 0.25 Mcg Cap PO 0.25 mcg DAILY ENEIDA Administration Cholecalciferol 1,000 units 04/16/20 09:00 04/17/20 13:56 Cholecalciferol 1,000 Units (25 Mcg) Tab PO 1,000 units DAILY ENEIDA Administration Dextrose/Water 25 gm 04/14/20 16:13 04/15/20 06:35 Dextrose 50% Abboject 50 Ml Syringe SLOW IVP 25 gm PRN PRN Administration Hypoglycemia Dicyclomine HCl 10 mg 04/15/20 15:00 04/17/20 13:57 Dicyclomine 10 Mg Cap PO 10 mg TID ENEIDA Administration Diltiazem HCl 240 mg 04/15/20 09:00 04/17/20 13:57 Diltiazem Hcl Cd 240 Mg Capsule PO 240 mg DAILY ENEIDA Administration Epoetin Kevin-epbx 7,500 unit 04/15/20 12:00 04/15/20 13:33 Epoetin Kevin-Epbx (Esrd) 4,000 Unit/Ml Vial SC 7,500 unit Q7D ENEIDA Administration Ferrous Sulfate 325 mg 04/15/20 07:30 04/17/20 13:57 Ferrous Sulfate 325 Mg Tab PO 325 mg DAILY-AC ENEIDA Administration Hydralazine HCl 100 mg 04/14/20 21:00 04/17/20 13:56 Hydralazine 25 Mg Tab PO 100 mg TID ENEIDA Administration Dextrose/Water 1,000 mls @ 75 mls/hr 04/15/20 10:00 04/15/20 10:09 D5w IV 1,000 mls INF ENEIDA Administration Ceftriaxone Sodium 1 gm/ 100 mls @ 200 mls/hr 04/15/20 21:30 04/16/20 20:38 Sodium Chloride IVPB 100 mls Q24HR ENEIDA Administration Lidocaine/Prilocaine 2 gm 04/15/20 09:15 04/15/20 17:58 Lidocaine-Prilocaine 2.5% Cream 5 Gm Tube TOP 1 applic WILLCALL ENEIDA Administration Losartan Potassium 100 mg 04/14/20 21:00 04/16/20 20:37 Losartan 25 Mg Tab PO 100 mg HS ENEIDA Administration Minoxidil 10 mg 04/15/20 09:00 04/17/20 13:58 Minoxidil 10 Mg Tab PO 10 mg DAILY ENEIDA Administration Ondansetron HCl 4 mg 04/14/20 15:33 04/16/20 13:26 Ondansetron Pf 4 Mg/2 Ml Vial IVP 4 mg Q6H PRN Administration Nausea/Vomiting Pantoprazole Sodium 40 mg 04/15/20 09:00 04/17/20 13:58 Pantoprazole 40 Mg Tab PO 40 mg DAILY ENEIDA Administration Saccharomyces Boulardii 250 mg 04/17/20 09:00 04/17/20 13:58 Saccharomyces Boulardii 250 Mg Cap PO 250 mg DAILY ENEIDA Administration Senna/Docusate Sodium 1 tab 04/15/20 09:00 04/17/20 13:56 Senokot S 8.6-50 Mg Tab PO 1 tab DAILY ENEIDA Administration Sevelamer Carbonate 800 mg 04/14/20 17:00 04/17/20 13:56 Sevelamer Carbonate 800 Mg Tab PO 800 mg TID-WM ENEIDA Administration Venlafaxine HCl 37.5 mg 04/15/20 09:00 04/17/20 13:57 Venlafaxine Xr 37.5 Mg Cap PO 37.5 mg DAILY ENEIDA Administration - Exam General Appearance: awake alert Eye: PERRL, anicteric sclera ENT: no oropharyngeal lesions, moist mucosa Neck: supple, no JVD Heart: RRR, no murmur Respiratory: no wheezes, no rales Gastrointestinal: soft, non-distended, normal bowel sounds, no guarding, no rigidity Extremities: no cyanosis, no edema Neurological: cranial nerve grossly intact, no focal deficits Psychiatric: normal affect, A&O x 3 Hosp A/P (1) Abdominal pain Code(s): R10.9 - UNSPECIFIED ABDOMINAL PAIN Status: Acute Qualifiers: Abdominal location: right lower quadrant Qualified Code(s): R10.31 - Right lower quadrant pain (2) UTI (urinary tract infection) Status: Acute Qualifiers: Urinary tract infection type: acute pyelonephritis Qualified Code(s): N10 - Acute pyelonephritis (3) Anemia due to chronic kidney disease, on chronic dialysis Code(s): N18.6 - END STAGE RENAL DISEASE; D63.1 - ANEMIA IN CHRONIC KIDNEY DISEASE; Z99.2 - DEPENDENCE ON RENAL DIALYSIS Status: Chronic (4) DM type 2 (diabetes mellitus, type 2) Status: Chronic Qualifiers: Diabetes mellitus alf insulin use: with alf use Diabetes mellitus complication status: with kidney complications Diabetes mellitus complication detail: with chronic kidney disease Chronic kidney disease stage: on chronic dialysis Qualified Code(s): E11.22 - Type 2 diabetes mellitus with diabetic chronic kidney disease; N18.6 - End stage renal disease; Z79.4 - nursing home (current) use of insulin; Z99.2 - Dependence on renal dialysis (5) Dyslipidemia Code(s): E78.5 - HYPERLIPIDEMIA, UNSPECIFIED Status: Chronic (6) ESRD (end stage renal disease) Code(s): N18.6 - END STAGE RENAL DISEASE Status: Chronic (7) HTN (hypertension) Code(s): I10 - ESSENTIAL (PRIMARY) HYPERTENSION Status: Chronic Qualifiers: Hypertension type: essential hypertension Qualified Code(s): I10 - Essential (primary) hypertension - Plan urine culture is contaminated hemostable is on ceftriaxone, will switch to oral antibiotics in am and dc continue home meds cardizem cd, hydralazine, cozaar, sevelamer, protonix, venlafaxine, iron, bentyl and aspirin he did not go home on antibiotics after his dc from [facility], unclear if he finished full course in hospital.
[2020-04-17] MEDS: Ondansetron PF 4 MG/2 ML Vial IVP PRN (20:05)
[2020-04-17] MEDS ORDERED: Morphine 2 MG/ML SYRINGE SLOW IVP SCH (21:00)
[2020-04-17] MEDS ORDERED: Morphine 2 MG/ML VIAL SLOW IVP SCH (21:00)
[2020-04-17] MEDS: Losartan 25 MG TAB PO SCH (21:04)
[2020-04-17] MEDS: cefTRIAXone\\ROCEPHIN 1 GM in Sodium Chloride 0.9% 100 ML IVPB SCH (21:05)
[2020-04-17] MEDS ORDERED: Fentanyl 100 MCG/2 ML VIAL SLOW IVP PRN (21:57)
[2020-04-17] MEDS ORDERED: Fentanyl 100 MCG/2 ML VIAL SLOW IVP SCH (22:00)
--- NOTE | 2020-04-17 23:12 | RAD ---
EXAM: XR Abdomen 1 View/KUB PROVIDED CLINICAL HISTORY: Abdominal pain. COMPARISON: None FINDINGS: Surgical clips overlie the right upper quadrant. Nonspecific bowel gas pattern is present with gaseou s distention of normal caliber loops of small bowel. No suspicious calcifications are seen. A few scattered calcifications overlie the pelvis likely related to phleboliths which were seen on prior CT exam on 04/14/2020. Degenerative changes seen in the spine. IMPRESSION: Nonspecific bowel gas pattern.
[2020-04-17] MEDS ORDERED: traMADol HCl 50 MG TAB PO SCH (23:45)
[2020-04-18 00:33] LABS: Anion Gap 21 mmol/L (10-20); BUN (Urea Nitrogen) 17 mg/dL (8.4-25.7); Calc. Creatinine Clearance 12 mL/min (70-130); Calcium 9.5 mg/dL (7.8-10.44); Carbon Dioxide 22 mmol/L (23-31); Chloride 98 mmol/L (98-107); Estimated GFR-MDRD 10; Glucose 84 mg/dL (83-110); Potassium 3.7 mmol/L (3.5-5.1); Sodium 137 mmol/L (136-145)
[2020-04-18] MEDS: Ferrous Sulfate 325 MG TAB PO SCH (07:56)
[2020-04-18] MEDS: Saccharomyces boulardii 250 MG CAP PO SCH (07:56)
[2020-04-18] MEDS: Senokot S 8.6-50 MG TAB PO SCH (07:56)
[2020-04-18] MEDS: Venlafaxine XR 37.5 MG CAP PO SCH (07:56)
[2020-04-18] MEDS: Aspirin 81 mg Enteric Coated Tablet PO SCH (07:56)
[2020-04-18] MEDS: Calcitriol 0.25 MCG CAP PO SCH (07:58)
[2020-04-18] MEDS: Minoxidil 10 MG TAB PO SCH (07:59)
[2020-04-18] MEDS: Dicyclomine 10 MG CAP PO SCH (07:59)
[2020-04-18] MEDS: Cholecalciferol 1,000 UNITS (25 MCG) TAB PO SCH (07:59)
[2020-04-18] MEDS: Sevelamer Carbonate 800 MG TAB PO SCH ×2 (08:00→11:43)
[2020-04-18] MEDS: hydrALAZINE 25 MG TAB PO SCH (08:00)
[2020-04-18 11:06] VITALS: BP 120/57; TEMP 98.2
--- NOTE | 2020-04-18 18:05 | DIS ---
DATE OF ADMISSION: 04/16/2020 DATE OF DISCHARGE: 04/18/2020 DISCHARGE DISPOSITION: Home. PRIMARY DISCHARGE DIAGNOSES: Left-sided pyelonephritis, urinary tract infection, right renal exophytic mass measuring 2 cm. SECONDARY DISCHARGE DIAGNOSES: End-stage renal disease, on hemodialysis; hypertension; chronic anemia; diabetes mellitus, type 2. PROCEDURES DONE DURING HOSPITALIZATION: CT abdomen and pelvis without contrast done showed mild left hydronephrosis and left hydroureter without evidence of ureteral or bladder calculus, 2 cm right renal mass, hyperdense cyst versus solid mass. Urine culture was contaminated. H and H 10 and , platelet count 225, MCV 101, white count of 5.4. COVID-19 PCR was not detected on 04/14/2020. HBS antigen was nonreactive. DISCHARGE MEDICATIONS: 1. Ciprofloxacin 500 mg p.o. daily for another 6 days. 2. Protonix 40 mg p.o. daily. 3. Bentyl 10 mg p.o. twice daily p.r.n. for abdominal pain. 4. Vitamin D3 of 1000 units p.o. daily. 5. Sevelamer 800 mg p.o. 3 times daily. 6. Norvasc 10 mg p.o. daily. 7. Minoxidil 10 mg p.o. daily. 8. Losartan 100 mg p.o. q.h.s. 9. Lantus 4 units subcu q.h.s. 10. Hydralazine 100 mg p.o. 3 times daily. 11. Aspirin 81 mg p.o. daily. 12. Clonidine 0.1 mg p.o. q.a.m. 13. Calcitriol 0.25 mcg p.o. daily. ALLERGIES: NO KNOWN DRUG ALLERGIES. DISCHARGE PLAN: The patient to follow up with Dr. Albright, his primary urologist, in 2 to 3 weeks. He needs to follow up with his primary care physician, in 1 week. BRIEF COURSE DURING HOSPITALIZATION: The patient initially got admitted on with complaints of right lower quadrant abdominal pain. Initial CAT scan done showed findings of mild hydronephrosis with findings suggestive of pyelonephritis. He has had consultation with Dr. Jaziel Carballo, urologist responder. No surgical intervention was done as there was no stone or obstruction seen. The patient's abdominal pain slowly resolved. He was placed on IV antibiotics and has been transitioned to oral ciprofloxacin for another 7 days. The patient needs to follow up with Dr. Albright, his primary urologist, in 1 week. He is an end-stage renal disease patient and has had scheduled dialysis done here. His abdominal pain has resolved and is eating and ambulating prior to discharge. Please note, I have seen and examined the patient on the day of discharge. Job ID: [id number] MTDD
== END 2020-04-18 17:41 | disposition home or self-care (01) | DRG 690 ==
LOC: ERS 12:28 → T4-A 14:45 → OBSVTOIN 04-16 10:26
PROVIDERS: ADMIT Hospitalist; ATTEND Internal Medicine
PROC: 8E0ZXY6 Isolation (ICD-10-PCS; principal; 2020-04-17)
DX: N13.6 Pyonephrosis (principal); I13.2 Hypertensive heart and chronic kidney disease with heart failure and with stage 5 chronic kidney disease, or end stage renal disease; N18.6 End stage renal disease; E11.22 Type 2 diabetes mellitus with diabetic chronic kidney disease; D63.1 Anemia in chronic kidney disease; Z20.828 Contact with and (suspected) exposure to other viral communicable diseases; I50.9 Heart failure, unspecified; Z96.659 Presence of unspecified artificial knee joint; G25.81 Restless legs syndrome; M54.5 Low back pain; G89.29 Other chronic pain; Z90.49 Acquired absence of other specified parts of digestive tract; Z99.2 Dependence on renal dialysis; Z79.82 Long term (current) use of aspirin; Z79.899 Other long term (current) drug therapy
CPT/HCPCS: 36415; 36416; 74018; 74176; 80048; 80053; 81003; 81015; 83690; 85025; 87086; 87340; 87635; 90935; 96374; 96375; 96376; G0257; G0378; J0696; J1170; J2270; J2405; J3010; J3490; Q5105; U0003

== ENCOUNTER 2020-05-17 18:26 | Inpatient (IN) | payer MEDICARE ==
[2020-05-17 20:58] LABS: Hemoglobin 10.1 g/dL (14.0-18.0); Mean Corpuscular HGB CONC 33.2 g/dL (32.0-36.0); Mean Corpuscular Hemoglobin 34.8 pg (27.0-31.0); Mean Platelet Volume 7.6 fL (7.4-10.4); Platelet Count 194 thou/uL (130-400); RBC Distribution Width 16.9 % (11.5-14.5); Red Blood Cell (RBC) Count 2.91 mill/uL (4.70-6.10); White Blood Cell (WBC) Count 7.1 thou/uL (4.8-10.8)
[2020-05-17 21:11] LABS: ALT (SGPT) 9 U/L (8-55); AST (SGOT) 18 U/L (5-34); Albumin 3.8 g/dL (3.4-4.8); Alkaline Phosphatase 61 U/L (40-110); Anion Gap 19 mmol/L (10-20); BUN (Urea Nitrogen) 30 mg/dL (8.4-25.7); Bilirubin, Total 1.7 mg/dL (0.2-1.2); Calc. Creatinine Clearance 0 mL/min (70-130); Calcium 9.2 mg/dL (7.8-10.44); Carbon Dioxide 28 mmol/L (23-31); Chloride 97 mmol/L (98-107); Globulin 2.7 g/dL (2.4-3.5); Glucose 89 mg/dL (83-110); Potassium 3.5 mmol/L (3.5-5.1); Protein, Total 6.5 g/dL (5.8-8.1); Sodium 140 mmol/L (136-145)
[2020-05-17 21:14] LABS: #Eosinphils 0.1 thou/uL (0.0-0.7); #Lymphocytes 1.5 thou/uL (1.20-3.40); #Monocytes 0.8 thou/uL (0.11-0.59); #Neutrophils 4.7 thou/uL (1.40-6.50); %Basophils 0.4 % (0.0-1.0); %Eosinophils 0.8 % (0.0-10.0); %Lymphocytes 21.5 % (21.0-51.0); %Monocytes 10.5 % (0.0-10.0); %Neutrophils 66.7 % (42.0-75.0)
[2020-05-17 21:15] LABS: Troponin I 0.065 ng/mL (< 0.028)
--- NOTE | 2020-05-17 22:43 | PDOC.FPRHP ---
- History of Present Illness Chief Complaint: syncope History of Present Illness: Pt is a 74 yo M with PMH of right renal mass, chronic anemia, End-stage renal disease on hemodialysis, Hypertension, Hyperlipidemia, Diabetes mellitus type 2, CHF who presents with cc of syncope. Patient states at 9:30 this morning after d ialysis patient was sitting at his kitchen table when he began to feel lightheaded. He could not describe any other symptoms as everything happened so fast. He tried to call out to his grandson who was in the shower. He fell onto the floor, unsure if he hit his head. He was found by grandson after unknown amount of time and came to ED via EMS. He endorses subjective fever and chills but has been afebrile. He states his last episode of syncope was about 3 months ago and was also right after dialysis. He has a history of syncope, all happening after dialysis. He denies CP, SOB, abdominal pain, MUNOZ, vision changes. He endorses compliance with medications. He was recently hospitalized for pyelonephritis last month. ED Course: 1L fluids, CT head/spine, EKG, CXR - Allergies/Adverse Reactions Allergies Allergy/AdvReac Type Severity Reaction Status Date / Time No Known Allergies Allergy Verified 04/14/20 17:14 - Home Medications Medication Instructions Recorded Confirmed Type Amlodipine [Norvasc] 10 mg PO DAILY 05/24/15 05/18/20 History Calcitriol 0.25 mcg PO DAILY 05/24/15 05/18/20 History Losartan Potassium 100 mg PO HS 05/24/15 05/18/20 History Sevelamer Carbonate [Renvela] 3 tab PO TID-WM 05/24/15 05/18/20 History Aspirin [Ecotrin Low Strength] 81 mg PO DAILY 05/25/15 05/18/20 History Insulin Glargine,Hum.Rec.Anlog 4 unit SC HS 05/25/15 05/18/20 History [Lantus Solostar] Minoxidil 10 mg PO DAILY 05/25/15 05/18/20 History Pantoprazole [Protonix] 40 mg PO DAILY #0 tab 05/25/15 05/18/20 Rx cloNIDine [Catapres] 0.1 mg PO QAM 05/25/15 05/18/20 History hydrALAZINE HCl 100 mg PO TID 05/25/15 05/18/20 History Cholecalciferol [Vitamin D3] 1,000 unit PO DAILY 04/15/20 05/18/20 History Sevelamer Carbonate [Renvela] 1 tab PO BID 04/15/20 05/18/20 History Dicyclomine [Bentyl] 10 mg PO BID PRN #20 cap 04/18/20 05/18/20 Rx - History PMHx: Right renal mass, Chronic anemia, End-stage renal disease on hemodialysis, Hypertension, Hyperlipidemia, Diabetes mellitus type 2, CHF PSHx: knee replacement, gallbladder FHx: mom - stroke Social: denies - Review of Systems General: reports: fever/chills (subjective fevers). denies: weight/appetite/sleep changes Eyes: denies: vision changes Respiratory: denies: cough, congestion, shortness of breath Cardiovascular: denies: chest pain, palpitation Gastrointestinal: denies: nausea, vomiting, diarrhea Skin: denies: rashes, lesions Neurological: reports: syncope. denies: numbness Psychological: denies: anxiety, depression - Vital signs BP: 132/66 HR: 87 RR: 20 Tmax: 97.9 Pox: 100% on RA Wt: 84 - Physical Exam Constitutional: NAD, awake, alert and oriented HEENT: normocephalic and atraumatic, PERRLA, EOMI, conjunctiva clear, grossly normal vision, grossly normal hearing Neck: supple Heart: RRR, normal S1/S2 Lungs: CTAB, no respiratory distress, good air movement Abdomen: soft, non-tender, bowel sounds present, no masses/distention Musculoskeletal: normal structure, normal tone, ROM grossly normal Neurological: no focal deficit, CN II-XII intact, normal sensation, DTRs 2+ Skin: no rash/lesions, capillary refill <2 seconds Heme/Lymphatic: no unusual bruising or bleeding, no purpura Psychiatric: normal mood and affect, good judgment and insight, intact recent and remote memory FMR H&P: Results - Labs Result Diagrams: 05/18/20 02:48 05/18/20 02:48 Lab results: WBC 7.1 thou/uL (4.8-10.8) 05/17/20 20:43 Hgb 10.1 g/dL (14.0-18.0) L 05/17/20 20:43 Hct 30.5 % (42.0-52.0) L 05/17/20 20:43 MCV 105.0 fL (78.0-98.0) H 05/17/20 20:43 Plt Count 194 thou/uL (130-400) 05/17/20 20:43 Neutrophils % 66.7 % (42.0-75.0) 05/17/20 20:43 Sodium 140 mmol/L (136-145) 05/17/20 20:43 Potassium 3.5 mmol/L (3.5-5.1) 05/17/20 20:43 Chloride 97 mmol/L (98-107) L 05/17/20 20:43 Carbon Dioxide 28 mmol/L (23-31) 05/17/20 20:43 BUN 30 mg/dL (8.4-25.7) H 05/17/20 20:43 Creatinine 6.31 mg/dL (0.7-1.3) H 05/17/20 20:43 Glucose 89 mg/dL (83-110) 05/17/20 20:43 Calcium 9.2 mg/dL (7.8-10.44) 05/17/20 20:43 Total Bilirubin 1.7 mg/dL (0.2-1.2) H 05/17/20 20:43 AST 18 U/L (5-34) 05/17/20 20:43 ALT 9 U/L (8-55) 05/17/20 20:43 Alkaline Phosphatase 61 U/L (40-110) 05/17/20 20:43 Serum Total Protein 6.5 g/dL (5.8-8.1) 05/17/20 20:43 Albumin 3.8 g/dL (3.4-4.8) 05/17/20 20:43 FMR H&P: A/P - Plan Syncope -likely 2/2 vasovagal vs volume depletion due to dialysis -POC glucose WNL at outside facility -CXR, CT head, EKG, CT spine neg at outside facility -MRI brain pending, carotid dopplers pending -continuous tele monitoring -neuro checks q4H Elevated Trop -aware: .075>.085 -continue to trend -continuous tele monitoring End-stage renal disease on hemodialysis -on dialysis T//Thu -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 Albright is urologist Chronic anemia -aware CODE: FULL PCP: Nitin dispo: stroke, obs. expect less than 2 midnights IVF: KVO DVT PPx: heparin FMR H&P: Upper Level - Plan Date/Time: 05/17/20 [id number] IKirby PGY3, have evaluated this patient and agree with findings/plan as outlined by program management intern resident. Pertinent changes/additions are listed here. 74-year-old male with past medical history of end-stage renal disease CHF hypertension hyperlipidemia and diabetes presents after syncopal episode. He had dialysis this morning, Dr. Qiules is his crm architect. When he got home he was eating and felt lightheaded suddenly, he then passed out and reports he hit his head, he has not noticed neurologic deficits since then. He went to outside emergency room and had head and neck CT done as well as CTA of chest all of which were normal per ER report. Patient is currently feeling well and has no complaints. On examination he is in no distress, neurologic exam is normal for cranial nerves II through XII equal strength sensation and reflexes in extremities bilaterally, cardiopulmonary exam is normal A/P Syncope A- stable. Possibly 2/2 volume status considering it happening righ after dialysis. and has fit this pattern in the past. Imaging at outside ED wnl for head neck and CTA chest. EKG unremarkable. Will admit to neuro for observation P- neuro checks -Brain MRI -carotid dopplers CHF A- noted on chart review though pt did not report Hx. unknown most recent ECHO pt a [facility] patient P- restart home meds -strict I/Os, daily weights ESRD -Will consult Dr. Quiles in the AM DM -restart home meds, SSI, accuchecks HTN -home meds CODE: FULL PCP: Nitin dispo: stroke, obs. expect less than 2 midnights IVF: KVO DVT PPx: heparin Addendum - Attending - Attending Attestation Date/Time: 05/18/20 1038 I personally evaluated the patient and discussed the management with Dr. Dr. Munguia and Maeve last night at time of admission I agree with the History, Examination, Assessment and Plan documented above with any addition or exceptions noted below.
[2020-05-17] MEDS ORDERED: Acetaminophen 325 MG TAB PO PRN (23:26)
[2020-05-17] MEDS ORDERED: Guaifenesin DM 100-10/5 ML UDCUP PO PRN (23:26)
[2020-05-17] MEDS ORDERED: Calcium Carbonate 500 MG ChewTAB PO PRN (23:26)
[2020-05-17] MEDS ORDERED: Ondansetron ODT 4 MG TAB PO PRN (23:26)
[2020-05-17] MEDS ORDERED: Senokot S 8.6-50 MG TAB PO PRN (23:26)
[2020-05-17 23:38] LABS: Troponin I 0.075 ng/mL (< 0.028)
[2020-05-18] MEDS ORDERED: Dicyclomine 10 MG CAP PO PRN (00:14)
[2020-05-18 02:58] LABS: #Eosinphils 0.1 thou/uL (0.0-0.7); #Lymphocytes 1.3 thou/uL (1.20-3.40); #Monocytes 0.7 thou/uL (0.11-0.59); #Neutrophils 4.3 thou/uL (1.40-6.50); %Basophils 0.6 % (0.0-1.0); %Lymphocytes 21.2 % (21.0-51.0); %Monocytes 10.3 % (0.0-10.0); %Neutrophils 66.8 % (42.0-75.0); Hemoglobin 9.3 g/dL (14.0-18.0); Mean Corpuscular HGB CONC 32.5 g/dL (32.0-36.0); Mean Corpuscular Hemoglobin 33.7 pg (27.0-31.0); Mean Platelet Volume 7.8 fL (7.4-10.4); Platelet Count 186 thou/uL (130-400); RBC Distribution Width 16.9 % (11.5-14.5); Red Blood Cell (RBC) Count 2.77 mill/uL (4.70-6.10); White Blood Cell (WBC) Count 6.4 thou/uL (4.8-10.8)
[2020-05-18 03:18] LABS: Troponin I 0.085 ng/mL (< 0.028)
[2020-05-18] MEDS ORDERED: Dextrose 50% Abboject 50 ML SYRINGE SLOW IVP PRN (03:35)
[2020-05-18] MEDS ORDERED: Dextrose 5% in Water 1,000 ML IV PRN (03:35)
[2020-05-18] MEDS ORDERED: HumaLOG 300 UNITS/3 ML VIAL SC PRN ×2 (03:35)
[2020-05-18 03:38] LABS: ALT (SGPT) Less than 7 U/L (8-55); AST (SGOT) 17 U/L (5-34); Albumin 3.6 g/dL (3.4-4.8); Alkaline Phosphatase 57 U/L (40-110); Anion Gap 18 mmol/L (10-20); BUN (Urea Nitrogen) 34 mg/dL (8.4-25.7); Bilirubin, Total 1.6 mg/dL (0.2-1.2); Calc. Creatinine Clearance 11 mL/min (70-130); Calcium 8.9 mg/dL (7.8-10.44); Carbon Dioxide 28 mmol/L (23-31); Chloride 98 mmol/L (98-107); Globulin 2.4 g/dL (2.4-3.5); Glucose 102 mg/dL (83-110); Potassium 3.5 mmol/L (3.5-5.1); Sodium 140 mmol/L (136-145)
[2020-05-18 05:50] LABS: Troponin I 0.086 ng/mL (< 0.028)
[2020-05-18 06:23] LABS: SARS-CoV-2 MS2 Positive; SARS-CoV-2 N Gene Negative; SARS-CoV-2 S Gene Negative; SARS-CoV-2 by NAA Not Detected (NotDetected); SARS-CoV-2 orf1ab Negative
--- NOTE | 2020-05-18 06:35 | PDOC.FM ---
- Subjective Subjective: Patient is resting comfortably in bed. Reports that he is feeling better than he did yesterday. Notes that he had dialysis yesterday and had 2.8L taken off, and then he passed out. States he has passed out after dialysis multiple times in the past. Notes his only pre-syncopal symptom is feeling light headed. 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 Denies chest pain, shortness of breath, f/chills. States he has chronic lower abdominal pain that he is seeing GI here in town to get worked up. - Objective MAR Reviewed: Yes Vital Signs & Weight: Vital Signs (12 hours) Temp Pulse Resp BP BP Pulse Ox 05/18/20 03:27 98.6 F 90 16 129/73 95 05/18/20 00:19 99.2 F 76 22 H 145/65 H 99 05/17/20 23:27 96 Weight Weight 83.733 kg Result Diagrams: 05/18/20 02:48 05/18/20 02:48 Phys Exam - Physical Examination Constitutional: NAD HEENT: PERRLA Respiratory: no wheezing, clear to auscultation bilateral 2/6 JUAN PABLO Gastrointestinal: soft, non-tender, positive bowel sounds Musculoskeletal: no edema Neurological: non-focal, normal sensation, moves all 4 limbs CN II-X12 intact, strength intact Psychiatric: normal affect, A&O x 3 Dx/Plan - Plan Plan: Syncope Likely 2/2 vasovagal vs volume depletion due to dialysis POC glucose WNL at outside facility CXR, CT head, EKG, CT spine neg at outside facility -MRI brain pending, carotid dopplers pending -Will get Echo - will get orthostatics -continuous tele monitoring -neuro checks q4H Elevated Trop -aware: .075>.085>.086 - likely demand 2/2 renal failure -continuous tele monitoring End-stage renal disease on hemodialysis -on dialysis T//Thu -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 Albright is urologist Chronic anemia -aware CODE: FULL PCP: Nitin dispo: stroke, obs. expect less than 2 midnights IVF: KVO DVT PPx: heparin Addendum - Attending - Attending Attestation Date/Time: 05/18/20 1430 I personally evaluated the patient and discussed the management with Dr. Salinas. I agree with the History, Examination, Assessment and Plan documented above with any addition or exceptions noted below. History presents v-v syncope as diagnosis, but patient with clear aortic murmur. Obtain TTE prior to dc.
[2020-05-18] MEDS ORDERED: Enoxaparin Sodium 40 MG/0.4 ML SYRINGE SC SCH (09:00)
[2020-05-18] MEDS: Amlodipine 10 MG TAB PO SCH (09:54)
[2020-05-18] MEDS: Sevelamer Carbonate 800 MG TAB PO SCH ×3 (09:54→16:14)
[2020-05-18] MEDS: Aspirin 81 mg Enteric Coated Tablet PO SCH (09:54)
[2020-05-18] MEDS: hydrALAZINE 25 MG TAB PO SCH ×3 (09:55→22:34)
[2020-05-18] MEDS: Minoxidil 2.5 MG TAB PO SCH (09:55)
[2020-05-18] MEDS: Calcitriol 0.25 MCG CAP PO SCH (09:56)
[2020-05-18] MEDS: Heparin 5,000 UNITS/ML VIAL SC SCH ×3 (09:57→22:34)
[2020-05-18] MEDS: Cholecalciferol 1,000 UNITS (25 MCG) TAB PO SCH (10:05)
--- NOTE | 2020-05-18 10:11 | MRI ---
BRAIN MRI WITHOUT CONTRAST: DATE: 05/18/2020. HISTORY: Syncope, trauma, fainting, dialysis patient with nausea and vomiting. TECHNIQUE: Multiplanar, multisequence MR imaging of the brain provided without contrast. FINDINGS: On the diffusion weighted imaging there is a focus of increased signal intensity measuring 8 mm abutt ing the posterior medial aspect of the body of the body of the left lateral ventricle. There is no d efinite area of increased signal intensity on the ADC map in this region. This area on the ADC map i s relatively isointense. There is increased T2 and FLAIR signal associated with this region as well. No blooming artifact is seen in this region or elsewhere within the brain parenchyma to suggest the presence of intracranial hemorrhage. There are scattered areas of subcentimeter increased T2 and FLAIR signal scattered throughout the whi te matter suggesting small-vessel disease. Regional bone marrow signal intensity appears grossly unr emarkable. Imaged paranasal sinuses and mastoid air cells are well aerated. The arterial flow voids at the axia l level of the skull base appear grossly unremarkable on the T2 weighted imaging. IMPRESSION: Focus of increased T2 and FLAIR signal measuring 8 mm abutting the medial posterior aspect of the bod y of the left lateral ventricle. This lesion is of increased signal intensity on diffusion weighted imaging but does not demonstrate definite restricted diffusion. This could represent a subacute infa rction or T2 shine-through. Short-term followup brain MRI is advised in one month for further assess ment. POS: [facility]
[2020-05-18] MEDS: Lidocaine-Prilocaine 2.5% Cream 5 GM TUBE TOP PRN (11:47)
[2020-05-18] MEDS ORDERED: Epoetin (ESRD) 20,000 UNITS/ML SC SCH (14:15)
--- NOTE | 2020-05-18 14:29 | PRG ---
DATE OF SERVICE: 05/18/2020 SUBJECTIVE: Mr. Tomlin is a 74-year-old black male with ESRD, admitted for near syncope/TIA. He had a brain MRI done today, which suggested the possibility of a subacute infarction. Recommendation is to repeat brain MRI again in one month. We are following up this patient for his ESRD. He received contrast yesterday to rule out pulmonary embolism with a CT angio. This was done in [place] [facility]. Due to the extra contrast, the patient will undergo a 2-hour hemodialysis today. No other complaints. No chest pain or shortness of breath. OBJECTIVE: VITAL SIGNS: Blood pressure 141/50, heart rate is 90, respiratory rate 16, and O2 saturation 95% on room air. GENERAL: Awake, alert, comfortable, not in distress. SKIN: Adequate turgor. HEENT: Slightly pale conjunctivae. Anicteric sclerae. NECK: No neck mass. No carotid bruits. No JVD. CHEST: No deformities. LUNGS: Clear breath sounds. No wheezing. No crackles. HEART: Normal sinus rhythm. No murmur. No gallops. No rubs. ABDOMEN: Globular, soft, and nontender. No masses. EXTREMITIES: No edema. No deformities. NEUROLOGIC: Moving all extremities. No tremors. No asterixis. MEDICATIONS: Medications of 05/18/2020 were reviewed. LABORATORY DATA: On 05/18/2020: White count 6.4 and hemoglobin 9.3. Sodium 140, potassium 3.5, chloride 98, carbon dioxide 28, BUN 34, creatinine 7.27, and glucose 102. AST 17 and ALT 7. Troponin I 0.086. Carotid Doppler currently pending. ASSESSMENT AND PLAN: 1. Transient ischemic attack/presyncopal episode, brain MRI suggestive of subacute infarction. Continue supportive care. Repeat brain MRI in about a month. 2. End-stage renal disease. Due to the extra contrast given to him yesterday, he will undergo a 2-hour hemodialysis. He is currently undergoing dialysis. Fluid removal only as tolerated. We will then resume his regular dialysis tomorrow, Thursday, , Thursday. Overall, agree with current management. 3. Anemia. We will start Epogen. Job ID: [id number]
[2020-05-18] MEDS ORDERED: EPOETIN ALFA-EPBX (ESRD) 4,000 UNIT/ML VIAL SC SCH (16:00)
[2020-05-18] MEDS ORDERED: Insulin Glargine 4 UNITS in Pre-Filled Syringe 1 EACH SC SCH (21:00)
[2020-05-18] MEDS ORDERED: Non-Formulary Item 1 EACH (Insulin Glargine,Hum.Rec.Anlog [Lantus Solostar] 100 UNIT/ML P SC SCH (21:00)
[2020-05-18] MEDS ORDERED: Losartan 25 MG TAB PO SCH (21:00)
[2020-05-19 05:09] LABS: ALT (SGPT) Less than 7 U/L (8-55); AST (SGOT) 20 U/L (5-34); Albumin 3.6 g/dL (3.4-4.8); Alkaline Phosphatase 53 U/L (40-110); Anion Gap 17 mmol/L (10-20); BUN (Urea Nitrogen) 25 mg/dL (8.4-25.7); Calc. Creatinine Clearance 11 mL/min (70-130); Calcium 8.7 mg/dL (7.8-10.44); Carbon Dioxide 28 mmol/L (23-31); Chloride 98 mmol/L (98-107); Globulin 2.5 g/dL (2.4-3.5); Glucose 93 mg/dL (83-110); Potassium 3.6 mmol/L (3.5-5.1); Protein, Total 6.1 g/dL (5.8-8.1); Sodium 139 mmol/L (136-145)
--- NOTE | 2020-05-19 06:06 | PDOC.FM ---
- Subjective Subjective: Patient is resting comfortably in bed. Reports that he is feeling much improved. Denies chest pain, shortness of breath. Reports chronic lower abdominal pain, notes that his Urologist is setting him up with GI for outpatient workup of chronic abdominal pain. - Objective MAR Reviewed: Yes Vital Signs & Weight: Vital Signs (12 hours) Temp Pulse Resp BP BP Pulse Ox 05/19/20 03:57 98.9 F 78 15 110/69 97 05/19/20 00:00 99.1 F 80 16 107/63 97 05/18/20 23:00 99.1 F 80 16 107/63 97 05/18/20 22:34 75 114/72 05/18/20 21:40 96 05/18/20 20:00 98.0 F 73 16 133/60 96 Weight Weight 84.187 kg I&O: 05/17/20 05/18/20 05/19/20 06:59 06:59 06:59 Intake Total 150 840 Output Total 0 Balance 150 840 Result Diagrams: 05/19/20 07:34 05/19/20 04:26 Phys Exam - Physical Examination Constitutional: NAD HEENT: PERRLA, moist MMs Respiratory: no wheezing, clear to auscultation bilateral 2-3/6 JUAN PABLO Gastrointestinal: soft, non-tender, positive bowel sounds Musculoskeletal: no edema Neurological: non-focal, moves all 4 limbs Psychiatric: normal affect, A&O x 3 Skin: no rash Dx/Plan - Plan Plan: Syncope Likely 2/2 vasovagal vs volume depletion due to dialysis Possible component of aortic stenosis, 3/6 JUAN PABLO Orthostatics positive POC glucose WNL at outside facility CXR, CT head, EKG, CT spine neg at outside facility MRI Brain: increased T2 and FLAIR signal measuring 8mm, subacute ischemic change vs T2 shine-through, recommended 1 month follow up Brain MRI -Will get Echo -continuous tele monitoring End-stage renal disease on hemodialysis -on dialysis T//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 Albright is urologist Chronic Lower abdominal pain - patient states that Dr. Albright is arranging for GI outpatient follow up Chronic anemia - Epo started yesterday by Dr. Quiles -aware CODE: FULL PCP: Nitin dispo: Possible d/c today pending no abnormalities on echo IVF: KVO DVT PPx: heparin Addendum - Attending - Attending Attestation Date/Time: 05/19/20 8343 I personally evaluated the patient and discussed the management with Dr. Salinas I agree with the History, Examination, Assessment and Plan documented above with any addition or exceptions noted below. Syncopal event- most likely vasovagal vs orthostatic. resolved. ECHO shows diastolic dysfunction. May need PT as outpatient. MRI shows subacute infarct vs T2 shine-through- will need repeat in 1 month. If stroke may need mod to high intensity statin. ESRD- dialysis T,Th,Sat- home after dialysis today
[2020-05-19 06:11] LABS: #Basophils 0.1 thou/uL (0.0-0.2); #Eosinphils 0.2 thou/uL (0.0-0.7); #Lymphocytes 1.7 thou/uL (1.20-3.40); #Monocytes 0.7 thou/uL (0.11-0.59); %Basophils 1.1 % (0.0-1.0); %Lymphocytes 30.7 % (21.0-51.0); %Monocytes 11.6 % (0.0-10.0); %Neutrophils 52.7 % (42.0-75.0); MDiff Complete? YES; Macrocytosis MODERATE=16-30 cells (100X) (0-5/hpf); Mean Corpuscular HGB CONC 32.5 g/dL (32.0-36.0); Mean Corpuscular Hemoglobin 34.8 pg (27.0-31.0); Mean Platelet Volume 8.3 fL (7.4-10.4); Platelet Count 186 thou/uL (130-400); RBC Distribution Width 16.8 % (11.5-14.5); White Blood Cell (WBC) Count 5.6 thou/uL (4.8-10.8)
[2020-05-19 07:47] LABS: #Basophils 0.1 thou/uL (0.0-0.2); #Eosinphils 0.2 thou/uL (0.0-0.7); #Lymphocytes 1.6 thou/uL (1.20-3.40); #Monocytes 0.7 thou/uL (0.11-0.59); #Neutrophils 2.8 thou/uL (1.40-6.50); %Basophils 1.5 % (0.0-1.0); %Eosinophils 3.9 % (0.0-10.0); %Lymphocytes 29.8 % (21.0-51.0); %Monocytes 12.8 % (0.0-10.0); %Neutrophils 52.1 % (42.0-75.0); Hemoglobin 9.4 g/dL (14.0-18.0); Mean Corpuscular HGB CONC 33.3 g/dL (32.0-36.0); Mean Platelet Volume 7.5 fL (7.4-10.4); Platelet Count 168 thou/uL (130-400); RBC Distribution Width 16.6 % (11.5-14.5); Red Blood Cell (RBC) Count 2.69 mill/uL (4.70-6.10); White Blood Cell (WBC) Count 5.4 thou/uL (4.8-10.8)
[2020-05-19] MEDS: Sevelamer Carbonate 800 MG TAB PO SCH ×2 (08:28→14:42)
[2020-05-19] MEDS: Aspirin 81 mg Enteric Coated Tablet PO SCH (08:28)
[2020-05-19] MEDS: Lidocaine-Prilocaine 2.5% Cream 5 GM TUBE TOP PRN (08:28)
[2020-05-19] MEDS: Cholecalciferol 1,000 UNITS (25 MCG) TAB PO SCH (08:28)
[2020-05-19] MEDS: Calcitriol 0.25 MCG CAP PO SCH (08:28)
[2020-05-19] MEDS: Heparin 5,000 UNITS/ML VIAL SC SCH ×2 (08:29→14:41)
[2020-05-19] MEDS: hydrALAZINE 25 MG TAB PO SCH ×2 (08:29→14:42)
[2020-05-19] MEDS: Minoxidil 2.5 MG TAB PO SCH (08:29)
[2020-05-19] MEDS: Amlodipine 10 MG TAB PO SCH (08:41)
--- NOTE | 2020-05-19 10:04 | PRG ---
DATE OF SERVICE: 05/19/2020 SUBJECTIVE: Mr. Tomlin is a 74-year-old black male with ESRD - currently on maintenance hemodialysis, was admitted for near syncopal episode. TIA workup has been done for this patient. He had a brain MRI, which was done and it showed possibility of a subacute infarction. Recommendation was to repeat the MRI in about a month. He also had a carotid Doppler study - official results are pending. Cardiac echo was done this morning. No new complaints. No chest pain or shortness of breath. The patient is scheduled this a.m. to undergo for his regular hemodialysis. He did receive an extra dialysis yesterday due to the recent contrast volume given to him at the [facility]. OBJECTIVE: VITAL SIGNS: Blood pressure 118/63, heart rate 67, respiratory rate 16, temperature 98.4, O2 saturation 96%. GENERAL: The patient is awake, alert, comfortable, not in overt distress. SKIN: Adequate turgor. HEENT: He has slightly pale conjunctivae. Anicteric sclerae. NECK: No neck mass. No carotid bruits. No JVD. CHEST: No deformities. LUNGS: Clear breath sounds. HEART: Normal sinus rhythm. No murmur. No gallops. No rubs. ABDOMEN: Globular, soft, nontender. No masses. EXTREMITIES: No edema. No deformities. MEDICATIONS: May 19, 2020, was reviewed. LABORATORY DATA: May 19, 2020; white count 5.4, hemoglobin 9.4. Sodium 139, potassium 3.6, chloride 98, carbon dioxide 28, BUN 25, creatinine 6.75, AST 20, ALT less than 7, albumin 3.6. ASSESSMENT AND PLAN: 1. End-stage renal disease, stable. We will continue current three times a week hemodialysis regimen with this patient. The patient is to undergo his three-hour hemodialysis today. Fluid removal only as tolerated. 2. Anemia - continuing weekly Epogen. P.r.n. blood transfusion for hemoglobin of less than 7. 3. Status post transient ischemic attack. Current workup negative. The possibility of a subacute infarct of the brain is being considered. 4. Agree with current management. Job ID: [id number]
--- NOTE | 2020-05-19 11:26 | EKG ---
Test Reason : Blood Pressure : / mmHG Vent. Rate : 088 BPM Atrial Rate : 088 BPM P-R Int : 168 ms QRS Dur : 106 ms QT Int : 358 ms P-R-T Axes : 046 -07 038 degrees QTc Int : 433 ms Normal sinus rhythm Nonspecific T wave abnormality Abnormal ECG Confirmed by HEIKE NIEVES ([id number]), assistant editor TRUDI LEIVA ([id number]) on 05/19/2020 11:26:38 AM Referred By: Confirmed By:HEIKE NIEVES
[2020-05-19 16:51] VITALS: BP 116/41; TEMP 96.7
--- NOTE | 2020-05-21 07:17 | ULT ---
EXAM: Carotid vascular duplex with color and spectral Doppler imaging: HISTORY: Syncope COMPARISON: None FINDINGS: Moderate atherosclerotic plaque involving the distal CCAs and proximal ICAs worse on the right side. Right ICA: PSV: 118 cm/s EDV: 47 cm/s ICA/CCA ratio: 1.8 Left ICA: PSV: 107 cm/s EDV: 23 cm/s ICA/CCA ratio: 0.7 Antegrade flow is seen in both vertebral arteries.. IMPRESSION: No evidence for hemodynamically significant ICA stenosis Evidence for carotid artery atherosclerotic vascular disease.
--- NOTE | 2020-05-21 14:32 | DIS ---
DATE OF ADMISSION: 05/18/2020 DATE OF DISCHARGE: 05/19/2020 RESIDENT: Belén Salinas DO ADMITTING ATTENDING: Phil Panda MD DISCHARGE ATTENDING: Phylicia Augustin MD CONSULTS: Nato Quiles MD, Nephrology. PROCEDURES: Dialysis on 05/18 and 05/19. PRIMARY DIAGNOSIS: Syncope likely 2/2 volume depletion due to dialysis. SECONDARY DIAGNOSES: Orthostatic hypotension, end-stage renal disease on hemodialysis, elevated troponin, hypertension, hyperlipidemia, diabetes type 2, right renal mass, chronic lower abdominal pain, and chronic anemia, HFpEF DISCHARGE MEDICATIONS: 1. Amlodipine 10 mg p.o. daily. 2. Aspirin 81 mg p.o. daily. 3. Calcitriol 0.25 mcg p.o. daily. 4. Cholecalciferol 1000 units p.o. daily. 5. Clonidine 0.1 mg p.o. q.a.m. 6. Dicyclomine 10 mg p.o. b.i.d. 7. Epoetin nery-Epbx 7500 units SC q.7 days. 8. Hydralazine 100 mg p.o. t.i.d. 9. Lantus 4 units SC at bedtime. 10. Losartan 100 mg p.o. at bedtime. 11. Minoxidil 10 mg p.o. daily. 12. Pantoprazole 40 mg p.o. daily. 13. Sevelamer carbonate 800 mg tablets p.o. t.i.d. with meals and one tablet b.i.d. with snacks. DISCONTINUED MEDICATIONS: None. HISTORY OF PRESENT ILLNESS/HOSPITAL COURSE: The patient is a 74-year-old with past medical history of ESRD on hemodialysis, hypertension, hyperlipidemia, type 2 diabetes, who presented with complaints of syncope, stated that at 9:30 this morning after dialysis he sat at the kitchen table, felt lightheaded, and fell on the floor, found by grandson unknown how long. Endorses subjective fever and chills, but afebrile. Last episode of syncope was 3 months ago, history of syncope all happening after dialysis. CT head, EKG, CT-spine, and chest x-ray, all negative at outside facility. MRI of brain and carotid Dopplers were ordered and echo was ordered. Lung Puller, Dr. Quiles was consulted, who did 2 hours of dialysis on 05/[address] at previous facility and then did dialysis as scheduled on 05/19 per patient. MRI brain showed an incidental finding of increased T2 and FLAIR signal measuring 8 mm, subacute ischemic change versus T2 shine-through. Recommended one month followup of MRI brain. Orthostatics were positive. The patient had elevated troponin on admission of 0.075, which trended 0.085 and 0.086 suspected 2/2 renal failure. The patient reports chronic lower abdominal pain, but notes that his urologist, Dr. Albright is arranging for GI outpatient followup. Carotid Doppler showed no evidence of significant stenosis, evidence for carotid artery atherosclerotic vascular disease. Echo showed EF 55% to 60% with diastolic dysfunction. The patient's syncope was likely 2/2 hypovolemia after dialysis. These incidental findings and new onset of CHF were reported to the patient's PCP, so they can be followed up on. DISPOSITION: Stable. DISCHARGE INSTRUCTIONS: 1. Location: Home. 2. Diet: Regular. 3. Activity: Ad marichuy. 4. Followup: Follow up with primary care physician in 7 to 14 days. Follow up with urologist in 7 to 14 days. Job ID: [id number] [facility]
== END 2020-05-19 18:31 | disposition home or self-care (01) | DRG 64 ==
LOC: ERS 18:26 → 2SE 20:21 → OBSVTOIN 05-18 15:41
PROVIDERS: ADMIT Family Medicine; ATTEND Family Medicine
PROC: 5A1D70Z Performance of Urinary Filtration, Intermittent, Less than 6 Hours Per Day (ICD-10-PCS; principal; 2020-05-18)
DX: I63.9 Cerebral infarction, unspecified (principal); N18.6 End stage renal disease; I13.2 Hypertensive heart and chronic kidney disease with heart failure and with stage 5 chronic kidney disease, or end stage renal disease; E86.9 Volume depletion, unspecified; I95.2 Hypotension due to drugs; Z20.828 Contact with and (suspected) exposure to other viral communicable diseases; D63.1 Anemia in chronic kidney disease; E78.5 Hyperlipidemia, unspecified; I50.9 Heart failure, unspecified; N28.89 Other specified disorders of kidney and ureter; T50.3X5A Adverse effect of electrolytic, caloric and water-balance agents, initial encounter; E11.22 Type 2 diabetes mellitus with diabetic chronic kidney disease; Z99.2 Dependence on renal dialysis; Z79.82 Long term (current) use of aspirin; Z79.4 Long term (current) use of insulin; Z79.899 Other long term (current) drug therapy
CPT/HCPCS: 36415; 36416; 70551; 80053; 84484; 85025; 87635; 90935; 93005; 93306; 93880; G0257; G0378; J1644; J1815; Q0162; Q5105; U0003